=== PATIENT | male | born 1970 | race Caucasian/White ===

== ENCOUNTER 2022-07-18 11:19 | Inpatient (IN) | payer OTHER ==
--- OUTSIDE RECORDS SUMMARY | 2022-07-18 11:25 | XMS REPORT | Continuity of Care Document ---
:1970 Author Organization [facility] t Address [address] [facility] [address]. [address] [place] [address] Care Team Providers Name Role Phone PCP, PATIENT DOES NOT HAVE A Primary Care Physician UnavailLENO Nicole Attending Clinician Unavailable BENJAMIN CASTILLO Attending Clinician Unavailable Benjamin Castillo MD Attending Clinician NIEVES RILEY Attending Clinician Unavailable Nieves Rodriguez Attending Clinician Jeannine Peralta PA-C Attending Clinician Doctor Unassigned, [place] Attending Clinician Unavailable GRAY INMAN Attending Clinician Unavailable Gray Waite Attending Clinician BENJAMIN CASTILLO Admitting Clinician Unavailable GRAY INMAN Admitting Clinician Unavailable Payers Payer Name Policy Type Policy Number Effective Date Expiration Date [facility] [id number] 2021 CHOICE 00:00:00 ADMINISTRATIVE [id number] 2021 [employer] 00:00:00 Problems Condition Condition Condition Status Onset Resolution Last Treating Co mments Source Name Details Category Date Date Treatment Clinician Date No known No known Disease Unive rs active active ity of problems problems [facility] Allergies, Adverse Reactions, Alerts Allergy Allergy Status Severity Reaction(s) Onset Inactive Treating Comm ents Source Name Type Date Date Clinician No Known DA Active U [facility] No Known DA Active U [facility] 7[facility]27 [place] [facility] NO KNOWN Drug Active Univers ALLERGIE Class ity of S [facility] Social History Social Habit Start Date Stop Date Quantity Comments Source Exposure to 2021-06-24 2021-07-04 Not sure [facility] SARS-CoV-2 (event) 00:00:00 12:41:00 Medica l Branch Sex Assigned At [birth year] [facility] 00:00:00 00:00:00 Medical Branch Smoking Status Start Date Stop Date Source Unknown if ever smoked [facility] Medications Ordered Filled Start Stop Current Ordering Indication Dosage Frequency Signature Comments Components Source Medication Medication Date Date Medication? Clinician (SIG) Name Name ondansetron 2021- No 4mg 4 mg, Univ ers (ZOFRAN-ODT 4-24 -24 Oral, ity of ) 20:15: 19:13 ONCE, 1 [place] disintegrat 00 :00 dose, On Medi min ing tablet [place] 4 mg 07/04/21 at 1515, MARGARITA HYDROcodone 2021- No 1{tbl} 1 tablet, Univers -acetaminop 4-24 -24 Oral, ity of hen (NORCO) 20:15: 19[place]13 [place] :00 dose, On Medica l tablet 1 [place] Branch tablet 07/04/21 at 1515, MARGARITA No known No Univers medications 4-24 ity of 11:39: [address] ondansetron Yes [id number] 4mg Take 1 Univers 4 mg 4-24 tablet by ity of disintegrat 00:00: mouth [place] ing tablet 00 every 4 Medica l (four) Branch hours as needed for Nausea and Vomiting (N/V). HYDROcodone 2021- No [id number] 1{tbl} Take 1 U nivers -acetaminop 4-24 05-02 tablet by it y of hen (NORCO) 00:00: 04:59 [place] 10-325 mg 00 :00 every 8 Medical tablet (eight) Branch hours as needed for Pain (scale 4-6) for up to 7 days. Indication s: acute pain famotidine 2020-03 20mg 20 mg, Univ ers (PEPCID 04-11 Slow IV ity of (PF)) 06:30: 05:20 Push, [place] injection 00 :00 ONCE, 1 Medical 20 mg dose, On Branch Mon02/09/21 at 0030, MARGARITA No known 2020-03 No Univers medications 04-11 ity of 00:14: [place] 10 [facility] pantoprazol 2020-03 No [id number] 40mg Take 1 Univers e 40 mg EC 04-11 tablet by ity of tablet 00:00: 05:59 mouth 2 [place] 00 :00 (two) Medical times Branch daily for 30 days. Vital Signs Vital Name Observation Time Observation Value Comments Source Systolic blood 2021-07-04 20:00:00 156 mm[Hg] Univer sity of [facility] Diastolic blood 2021-07-04 20:00:00 80 mm[Hg] Unive rsity [facility] Heart rate 2021-07-04 20:00:00 73 /min [facility] Respiratory rate 2021-07-04 20:00:00 18 /min [facility] Oxygen saturation in 2021-07-04 20:00:00 98 /min [facility] Arterial blood by [facility] Pulse oximetry [place] Body temperature 2021-07-04 17:42:00 37.11 Lisa [facility] Body height 2021-07-04 17:42:00 182.9 cm [facility] Body weight 2021-07-04 17:42:00 117.935 kg [facility] BMI 2021-07-04 17:42:00 35.26 kg/m2 [facility] Systolic blood 2021-07-04 16:31:00 164 mm[Hg] Univer sity [facility] Diastolic blood 2021-07-04 16:31:00 94 mm[Hg] Unive rsity of [facility] Heart rate 2021-07-04 16:31:00 85 /min Universi ty of [place] Medical [place] Body temperature 2021-07-04 16:31:00 37.17 Lisa [facility] ersity of [facility] Respiratory rate 2021-07-04 16:31:00 18 /min Univ ersity of [place] [facility] Branch Body height 2021-07-04 16:31:00 182.9 cm Universi ty [facility] [place] [facility] [place] Body weight 2021-07-04 16:31:00 122.471 kg [facility]i ty [facility] [place] [facility] BMI 2021-07-04 16:31:00 36.62 kg/m2 Universi ty of [facility] Oxygen saturation in 2021-07-04 16:31:00 98 /min University of Arterial blood by [facility] Pulse oximetry Branch Systolic blood 2021-02-09 07:00:00 143 mm[Hg] Univer sity of pressure [facility] Diastolic blood 2021-02-09 07:00:00 93 mm[Hg] Unive rsity of pressure [facility] Heart rate 2021-02-09 07:00:00 74 /min Universi ty of [facility] Respiratory rate 2021-02-09 07:00:00 19 /min [facility] Oxygen saturation in 2021-02-09 07:00:00 100 /min University of Arterial blood by [facility] Pulse oximetry Branch Body temperature 2021-02-09 04:07:00 37 Lisa [facility] ersity of [facility] Body height 2021-02-09 04:07:00 182.9 cm [facility] ty [facility] [place] [facility] [place] Body weight 2021-02-09 04:07:00 120.203 kg [facility] ty [facility] [place] [facility] [place] BMI 2021-02-09 04:07:00 35.94 kg/m2 Universi ty [facility] Procedures Procedure Date / Time Performed Performing Clinician Sourc e XR FOOT <3 VW RIGHT 2021-07-04 19:28:08 Benjamin Castillo [facility] ty [facility] XR KNEE 3 VW RIGHT 2021-07-04 18:19:41 Benjamin Castillo [facility] y [facility] NOTICE OF PRIVACY 2021-07-04 17:11:30 Doctor Unassigned, No [facility] CONSENT/REFUSAL FOR 2021-07-04 17:11:15 Doctor Unassigned, No [facility] DIAGNOSIS AND [facility] TREATMENT ASSIGNMENT OF BENEFITS 2021-07-04 16:25:25 Doctor Unassigned, No [facility] XR CHEST 2 VW 2021-02-09 05:03:00 Gray Inman [facility] TROPONIN I 2021-02-09 04:40:00 Gray Inman [facility] COMP. METABOLIC PANEL 2021-02-09 04:40:00 Gray Inman Un [facility] ([id number]) [facility] CBC WITH DIFF 2021-02-09 04:40:00 Gray Inman [facility] N-TERMINAL PRO-BNP 2021-02-09 04:40:00 Gray Inamn Unive [facility] Encounters Start End Encounter Admission Attending Care Care Encounter Source Date/Time Date/Time Type Type Clinicians Facility Department ID 2021-07-06 2021-07-06 Outpatient Rochelle KHOURY [facility] [id number] Univers 13:00:00 13:00:00 LENO [facility] 2021-07-04 2021-07-04 [id number] Univers 12:43:00 15:20:00 BENJAMIN [facility] 2021-07-04 2021-07-04 [facility] [id number] Univers 12:43:00 15:20:00 Benjamin NO [id number] i [facility] [id number] [facility] [id number] [place] [id number] Branch 2021-07-04 2021-07-04 Outpatient Rochelle RILEY [facility] [id number] Univers 11:20:00 12:01:45 NIEVES palafox [facility] 2021-07-04 2021-07-04 Urgent Nieves Riley [facility] [id number] Univers 11:20:00 12:01:45 [facility] [id number] javy delgado [place] [id number] Erich as MELANI?BLEA [id number] De edilma RAKESH [address] [place] [address] MEDICAL OFFICE BUILDING 2021-07-04 2021-07-04 Orders Doctor SALIMA [id number] Univers 00:00:00 00:00:00 Only Unassigned, TAM [id number] ity of [place] [facility] 4.2.7.2.686 Erich as [id number] [facility] 009 Branch 2021-02-08 2021-02-09 Emergency X [facility] ERT [id number] Univers 21:59:00 01:10:00 FOLUSHO ity of [facility] 2021-02-08 2021-02-09 Emergency [facility] [id number] Univers 21:59:00 01:10:00 Folusho Kendrick NO [id number] ity of [place] 4.2.7.2.686 [place] [facility] [id number] [place] [id number] [place] Results Test Description Test Time Test Comments Results Result Comments Source CBC WITH DIFF 2021-02-09 05:55:30 Test Item Value Reference Range Interpretation Comme nts WBC (test code = 6690-2) See_Comment [A utomated message] The system which ge nerated this result transmit angela reference range: 4.20 - 1 0.70 10*3/?L. The reference r sai was not used to interpr et this result as normal/abnor mal. RBC (test code = 789-8) See_Comment L [Au tomated message] The system which Aquacue nerated this result transmit angela reference range: 4.26 - 5 .52 10*6/?L. The reference r sai was not used to interpr et this result as normal/abnor mal. HGB (test code = 718-7) 7.6 g/dL 12.2-16.4 L HCT (test code = 4544-3) 27.4 % 38.4-49.3 L MCV (test code = 787-2) 85.6 fL 81.7-95.6 MCH (test code = 785-6) 23.8 pg 26.1-32.7 L MCHC (test code = 786-4) 27.7 g/dL 31.2-35.0 L RDW-SD (test code = 01006-1) 66.3 fL 38.5-51.6 H RDW-CV (test code = 788-0) 21.4 % 12.1-15.4 H PLT (test code = 777-3) See_Comment [Au tomated message] The system which ge nerated this result transmit angela reference range: 150 - 32 8 10*3/?L. The reference range was not used to interpret th is result as normal/abnormal . MPV (test code = 36911-3) 10.1 fL 9.8-13.0 NRBC/100 WBC (test code = See_Comment [ Automated message] The 7110071888) system which ge nerated this result transmit angela reference range: 0.0 - 10 .0 /100 WBCs. The reference r sai was not used to interpr et this result as normal/abnor mal. NRBC x10^3 (test code = <0.01 See_Comment [Au tomated message] The 1858800320) system which ge nerated this result transmit angela reference range: 10*3/?L. The reference range was not u sed to interpret this result as normal/abnormal . GRAN MAT (NEUT) % (test code 73.3 % = 770-8) IMM GRAN % (test code = 0.40 % 6775760212) LYMPH % (test code = 736-9) 12.5 % MONO % (test code = 5905-5) 11.3 % EOS % (test code = 713-8) 1.5 % BASO % (test code = 706-2) 1.0 % GRAN MAT x10^3(ANC) (test 3.81 10*3/uL 1.99-6.95 code = 2204780697) IMM GRAN x10^3 (test code = <0.03 0.00-0.06 1083472611) LYMPH x10^3 (test code = 0.65 10*3/uL 1.09-3.23 L 731-0) MONO x10^3 (test code = 0.59 10*3/uL 0.36-1.02 742-7) EOS x10^3 (test code = 0.08 10*3/uL 0.06-0.53 711-2) BASO x10^3 (test code = 0.05 10*3/uL 0.01-0.09 704-7) Lab Interpretation (test Abnormal code = 67956-2) [place] [facility] [id number] 05:20:01 Test Item Value Reference Interpretation Comments Range TROPONIN I (test 0.002 ng/mL See_Comment [Automated code = 3471590273) message] The system which generated this result transmitted reference range : <=0.034. The reference range was not used to interpret this result as normal/abnormal . EUNICE (test code = Reference (Normal) EUNICE) Range (defined by the 99th percentile reference limit): <= 0.034 ng/mL Note: Cardiac troponin begins to rise 3-4 hours after the onset of ischemia. Repeat in 4-6 hours if the sample was drawn within 3-4 hours of the onset of the symptom and found normal. Diagnosis of myocardial injury is made with acute changes in cTn concentrations with at least one serial sample above the 99th percentile upper reference limit (URL), taken together with the patient's clinical presentation. Biotin has been reported to cause a negative bias, interpret results relative to patient's use of biotin. Lab Interpretation Normal (test code = 31500-5) [place] [facility] [id number] 05:16:39 Test Item Value Reference Range Interpretation Comments NT-proBNP (test code 320 pg/mL See_Comment H [Autom ated = 8661839004) message] The system which generated this result transmitted reference range : <=125. The reference range was not used to interpret this result as normal/abnormal . EUNICE (test code = EUNICE) Biotin has been reported to cause a negative bias, interpret results relative to patient's use of biotin. Lab Interpretation Abnormal (test code = 72213-5) [place] [facility] METABOLIC PANEL ([id number])2021-02-09 05:05:16 Test Item Value Reference Range Interpretation Comments NA (test code = 135 mmol/L 135-145 2284410796) K (test code = 4.3 mmol/L 3.5-5.0 7867349234) CL (test code = 109 mmol/L 98-108 H 6343594066) CO2 TOTAL (test code = 24 mmol/L 23-31 8899252022) AGAP (test code = 2-16 5918939655) BUN (test code = 16 mg/dL 7-23 3151419559) GLUCOSE (test code = 224 mg/dL 70-110 H 2648071482) CREATININE (test code = 0.91 mg/dL 0.60-1.25 2747981203) TOTAL BILI (test code = 0.6 mg/dL 0.1-1.7 3052105842) CALCIUM (test code = 8.2 mg/dL 8.6-10.6 L 8014436275) T PROTEIN (test code = 6.0 g/dL 6.3-8.2 L 7459134326) ALBUMIN (test code = 3.3 g/dL 3.5-5.0 L 3282839955) ALK PHOS (test code = 127 U/L 34-122 H 5702392271) ALTv (test code = 15 U/L 5-50 2-6) AST(SGOT) (test code = 26 U/L 13-40 7230325607) eGFR (test code = mL/min/1.73m2 2777493814) EUNICE (test code = EUNICE) Association of Glomerular Filtration Rate (GFR) and Staging of Kidney Disease* + --+ --+ ------+| GFR (mL/min/1.73 m2) ?| With Kidney Damage ?| ?Without Kidney Damage+ --------+ --------+ +| ?>90 ?| ?Stage one ?| ? Normal ?+ ---+ ---+ -------+| ?60-89 ?| ?Stage two ?| ? Decreased GFR ? + --+ --+ ------+| ?30-59 ?| ?Stage three ?| ? Stage three ? + --+ --+ ------+| ?15-29 ?| ?Stage four ? | ? Stage four ?+ ---+ ---+ -------+| ?<15 (or dialysis) ? ?| ?Stage five ? | ? Stage five ?+ ---+ ---+ -------+ *Each stage assumes the associated GFR level has been in effect for at least three months. ?Stages 1 to 5, with or without kidney disease, indicate chronic kidney disease. Notes: Determination of stages one and two (with eGFR >59mL/min/1.73 m2) requires estimation of kidney damage for at least three months as defined by structural or functional abnormalities of the kidney, manifested by either:Pathological abnormalities or Markers of kidney damage (including abnormalities in the composition of the blood or urine or abnormalities in imaging tests). Lab Interpretation Abnormal (test code = 05775-8) [place] [facility]2019-07-15 08:41:00 Test Item Value Reference Range Interpretation Comments GLUBED (test code = 100 mg/dL 74-106 N Performe d by certified GLUBED) linking machine operator at [facility] [id number] 20:58:00 Test Item Value Reference Range Interpretation Comments GLUBED (test code = 114 mg/dL 74-106 H Performe d by certified GLUBED) linking machine operator at [facility] [id number] 17:50:00 Test Item Value Reference Range Interpretation Comments GLUBED (test code = 194 mg/dL 74-106 H Performe d by certified GLUBED) linking machine operator at [facility] [id number] 16:19:00 Test Item Value Reference Range Interpretation Comments GLUBED (test code = 103 mg/dL 74-106 N Performe d by certified GLUBED) linking machine operator at [facility] [id number] 16:19:00 Test Item Value Reference Range Interpretation Comments GLUBED (test code = 203 mg/dL 74-106 H Performe d by certified GLUBED) linking machine operator at [facility] [id number] 01:08:00 Test Item Value Reference Range Interpretation Comments GLUBED (test code = 115 mg/dL 74-106 H Performe d by certified GLUBED) linking machine operator at [facility] CBC W/AUTO [id number] 12:15:00 Test Item Value Reference Range Interpretation Comments WHITE BLOOD CELL (test 6.0 K/mm3 4.5-12.5 N code = WBC) RED BLOOD CELL (test code 3.34 mill/mm3 4.0-5.8 L = RBC) HEMOGLOBIN (test code = 8.7 gram/dL 13.0-17.5 L HGB) HEMATOCRIT (test code = 30.1 % 42.0-52.0 L HCT) MEAN CELL VOLUME (test 90.1 fL 80-98 N code = MCV) MEAN CELL HGB (test code 26.0 picogram 27.0-33.0 L = MCH) MEAN CELL HGB 28.9 gram/dL 33.0-36.0 L CONCETRATION (test code = MCHC) RED CELL DISTRIBUTION 21.5 % 11.6-16.2 H WIDTH (test code = RDW) RED CELL DISTRIBUTION 65.4 fL 37.0-51.0 H WIDTH SD (test code = RDW-SD) PLATELET COUNT (test code 117 K/mm3 150-450 L = PLT) MEAN PLATELET VOLUME 10.6 fL 6.7-11.0 N (test code = MPV) NEUTROPHIL % (test code = 75.5 % 39.0-69.0 H NT%) IMMATURE GRANULOCYTE % 0.8 % 0.0-5.0 N (test code = IG%) LYMPHOCYTE % (test code = 12.3 % 25.0-55.0 L LY%) MONOCYTE % (test code = 9.1 % 0.0-10.0 N MO%) EOSINOPHIL % (test code = 1.8 % 0.0-5.0 N EO%) BASOPHIL % (test code = 0.5 % 0.0-1.0 N BA%) NUCLEATED RBC % (test 0.0 % 0-0 N code = NRBC%) NEUTROPHIL # (test code = 4.49 K/mm3 1.8-7.7 N NT#) IMMATURE GRANULOCYTE # 0.05 x10 3/uL 0-0.03 H (test code = IG#) LYMPHOCYTE # (test code = 0.73 K/mm3 1.0-5.0 L LY#) MONOCYTE # (test code = 0.54 K/mm3 0-0.8 N MO#) EOSINOPHIL # (test code = 0.11 K/mm3 0.0-0.5 N EO#) BASOPHIL # (test code = 0.03 K/mm3 0.0-0.2 N BA#) NUCLEATED RBC # (test 0.00 K/mm3 0.0-0.1 N code = NRBC#) MANUAL DIFF REQUIRED NO, ONLY SCAN NEEDED (test code = MDIFF) DIFFERENTIAL [id number] 12:15:00 Test Item Value Reference Range Interpretation Comments STAIN ACCEPTABILITY (test STAIN ACCEPTABLE code = STN ACCEPTABLE) POLYCHROMASIA (test code 1+ = POLC) HYPOCHROMIA (test code = 1+ HYPO) POIKILOCYTOSIS (test code 1+ = POIK) ANISOCYTOSIS (test code = 1+ ANISO) MICROCYTOSIS (test code = 1+ MICR) STOMATOCYTES (test code = 1+ STO) PLATELET ESTIMATE (test ADEQUATE code = PLTEST) PLATELET MORPHOLOGY (test GIANT PLATELETS SEEN code = PLTMORPH) BASIC METABOLIC [id number] 12:07:00 Test Item Value Reference Range Interpretation Comments SODIUM (test code = 140 mmol/L 136-145 N NA) POTASSIUM (test code 4.4 mmol/L 3.5-5.1 N = K) CHLORIDE (test code = 109.0 mmol/L 98-107 H CL) CARBON DIOXIDE (test 27.0 mmol/L 21-32 N code = CO2) ANION GAP (test code 8.4 10-20 L = GAP) GLUCOSE (test code = 101 mg/dL 74-106 N GLU) BLOOD UREA NITROGEN 9 mg/dL 7-18 N (test code = BUN) GLOMERULAR FILTRATION > 60 mL/min >=60 Estima angela GFR by RATE (test code = using Meena fied MDRD GFR) formula.Chronic kidney disease is defined as ei er kidney damageor GFR <60 mL/min/1.73 m2 for >3 months. CREATININE (test code 0.80 mg/dL 0.7-1.3 N = CREAT) BUN/CREATININE RATIO 11.3 10-20 N (test code = BUN/CREA) CALCIUM (test code = 8.5 mg/dL 8.5-10.1 N CA) PT BERNY SALCIDO NOTIFIED [facility] 09/22/18 [id number] 12:07:00 Test Item Value Reference Range Interpretation Comments MAGNESIUM (test code = MAG) 2.0 mg/dL 1.8-2.4 N PT BERNY SALCIDO NOTIFIED [facility] 09/22/18 1052BASIC METABOLIC PANEL 2018-09-22 12:06:00 Test Item Value Reference Range Interpretation Comments SODIUM (test code = NA) 140 mmol/L 136-145 N POTASSIUM (test code = K) 4.4 mmol/L 3.5-5.1 N CHLORIDE (test code = CL) 109.0 mmol/L 98-107 H CARBON DIOXIDE (test code = CO2) mmol/L 21-32 ANION GAP (test code = GAP) 10-20 GLUCOSE (test code = GLU) mg/dL 74-106 BLOOD UREA NITROGEN (test code = mg/dL 7-18 BUN) GLOMERULAR FILTRATION RATE (test mL/min >=60 code = GFR) CREATININE (test code = CREAT) mg/dL 0.7-1.3 BUN/CREATININE RATIO (test code 10-20 = BUN/CREA) CALCIUM (test code = CA) mg/dL 8.5-10.1 PT BERNY SALCIDO NOTIFIED [facility] 09/22/18 [id number] 12:06:00 Test Item Value Reference Range Interpretation Comments MAGNESIUM (test code = MAG) mg/dL 1.8-2.4 PT BERNY SALCIDO NOTIFIED [facility] 09/22/18 1052CBC W/AUTO DIFF 2018-09-22 11:45:00 Test Item Value Reference Range Interpretation Comments WHITE BLOOD CELL (test 6.0 K/mm3 4.5-12.5 N code = WBC) RED BLOOD CELL (test code 3.34 mill/mm3 4.0-5.8 L = RBC) HEMOGLOBIN (test code = 8.7 gram/dL 13.0-17.5 L HGB) HEMATOCRIT (test code = 30.1 % 42.0-52.0 L HCT) MEAN CELL VOLUME (test 90.1 fL 80-98 N code = MCV) MEAN CELL HGB (test code 26.0 picogram 27.0-33.0 L = MCH) MEAN CELL HGB 28.9 gram/dL 33.0-36.0 L CONCETRATION (test code = MCHC) RED CELL DISTRIBUTION 21.5 % 11.6-16.2 H WIDTH (test code = RDW) RED CELL DISTRIBUTION 65.4 fL 37.0-51.0 H WIDTH SD (test code = RDW-SD) PLATELET COUNT (test code 117 K/mm3 150-450 L = PLT) MEAN PLATELET VOLUME 10.6 fL 6.7-11.0 N (test code = MPV) NEUTROPHIL % (test code = 75.5 % 39.0-69.0 H NT%) IMMATURE GRANULOCYTE % 0.8 % 0.0-5.0 N (test code = IG%) LYMPHOCYTE % (test code = 12.3 % 25.0-55.0 L LY%) MONOCYTE % (test code = 9.1 % 0.0-10.0 N MO%) EOSINOPHIL % (test code = 1.8 % 0.0-5.0 N EO%) BASOPHIL % (test code = 0.5 % 0.0-1.0 N BA%) NUCLEATED RBC % (test 0.0 % 0-0 N code = NRBC%) NEUTROPHIL # (test code = 4.49 K/mm3 1.8-7.7 N NT#) IMMATURE GRANULOCYTE # 0.05 x10 3/uL 0-0.03 H (test code = IG#) LYMPHOCYTE # (test code = 0.73 K/mm3 1.0-5.0 L LY#) MONOCYTE # (test code = 0.54 K/mm3 0-0.8 N MO#) EOSINOPHIL # (test code = 0.11 K/mm3 0.0-0.5 N EO#) BASOPHIL # (test code = 0.03 K/mm3 0.0-0.2 N BA#) NUCLEATED RBC # (test 0.00 K/mm3 0.0-0.1 N code = NRBC#) MANUAL DIFF REQUIRED NO, ONLY SCAN NEEDED (test code = MDIFF) DIFFERENTIAL [id number] 11:45:00 Test Item Value Reference Range Interpretation Comments STAIN ACCEPTABILITY (test code = STN ACCEPTABLE) CABOT RINGS (test code = CAB) MORPHOLOGY COMMENT (test code = MOC) PLATELET ESTIMATE (test code = PLTEST) PLATELET MORPHOLOGY (test code = PLTMORPH) CBC W/AUTO [id number] 11:45:00 Test Item Value Reference Range Interpretation Comments WHITE BLOOD CELL (test 6.0 K/mm3 4.5-12.5 N code = WBC) RED BLOOD CELL (test code 3.34 mill/mm3 4.0-5.8 L = RBC) HEMOGLOBIN (test code = 8.7 gram/dL 13.0-17.5 L HGB) HEMATOCRIT (test code = 30.1 % 42.0-52.0 L HCT) MEAN CELL VOLUME (test 90.1 fL 80-98 N code = MCV) MEAN CELL HGB (test code 26.0 picogram 27.0-33.0 L = MCH) MEAN CELL HGB 28.9 gram/dL 33.0-36.0 L CONCETRATION (test code = MCHC) RED CELL DISTRIBUTION 21.5 % 11.6-16.2 H WIDTH (test code = RDW) RED CELL DISTRIBUTION 65.4 fL 37.0-51.0 H WIDTH SD (test code = RDW-SD) PLATELET COUNT (test code 117 K/mm3 150-450 L = PLT) MEAN PLATELET VOLUME 10.6 fL 6.7-11.0 N (test code = MPV) NEUTROPHIL % (test code = 75.5 % 39.0-69.0 H NT%) IMMATURE GRANULOCYTE % 0.8 % 0.0-5.0 N (test code = IG%) LYMPHOCYTE % (test code = 12.3 % 25.0-55.0 L LY%) MONOCYTE % (test code = 9.1 % 0.0-10.0 N MO%) EOSINOPHIL % (test code = 1.8 % 0.0-5.0 N EO%) BASOPHIL % (test code = 0.5 % 0.0-1.0 N BA%) NUCLEATED RBC % (test 0.0 % 0-0 N code = NRBC%) NEUTROPHIL # (test code = 4.49 K/mm3 1.8-7.7 N NT#) IMMATURE GRANULOCYTE # 0.05 x10 3/uL 0-0.03 H (test code = IG#) LYMPHOCYTE # (test code = 0.73 K/mm3 1.0-5.0 L LY#) MONOCYTE # (test code = 0.54 K/mm3 0-0.8 N MO#) EOSINOPHIL # (test code = 0.11 K/mm3 0.0-0.5 N EO#) BASOPHIL # (test code = 0.03 K/mm3 0.0-0.2 N BA#) NUCLEATED RBC # (test 0.00 K/mm3 0.0-0.1 N code = NRBC#) MANUAL DIFF REQUIRED NO, ONLY SCAN NEEDED (test code = MDIFF) DIFFERENTIAL [id number] 11:45:00 Test Item Value Reference Range Interpretation Comments STAIN ACCEPTABILITY (test code = STN ACCEPTABLE) CABOT RINGS (test code = CAB) MORPHOLOGY COMMENT (test code = MOC) PLATELET ESTIMATE (test code = PLTEST) PLATELET MORPHOLOGY (test code = PLTMORPH) CBC W/AUTO [id number] 11:45:00 Test Item Value Reference Range Interpretation Comments WHITE BLOOD CELL (test 6.0 K/mm3 4.5-12.5 N code = WBC) RED BLOOD CELL (test code 3.34 mill/mm3 4.0-5.8 L = RBC) HEMOGLOBIN (test code = 8.7 gram/dL 13.0-17.5 L HGB) HEMATOCRIT (test code = 30.1 % 42.0-52.0 L HCT) MEAN CELL VOLUME (test 90.1 fL 80-98 N code = MCV) MEAN CELL HGB (test code 26.0 picogram 27.0-33.0 L = MCH) MEAN CELL HGB 28.9 gram/dL 33.0-36.0 L CONCETRATION (test code = MCHC) RED CELL DISTRIBUTION 21.5 % 11.6-16.2 H WIDTH (test code = RDW) RED CELL DISTRIBUTION 65.4 fL 37.0-51.0 H WIDTH SD (test code = RDW-SD) PLATELET COUNT (test code 117 K/mm3 150-450 L = PLT) MEAN PLATELET VOLUME 10.6 fL 6.7-11.0 N (test code = MPV) NEUTROPHIL % (test code = 75.5 % 39.0-69.0 H NT%) IMMATURE GRANULOCYTE % 0.8 % 0.0-5.0 N (test code = IG%) LYMPHOCYTE % (test code = 12.3 % 25.0-55.0 L LY%) MONOCYTE % (test code = 9.1 % 0.0-10.0 N MO%) EOSINOPHIL % (test code = 1.8 % 0.0-5.0 N EO%) BASOPHIL % (test code = 0.5 % 0.0-1.0 N BA%) NUCLEATED RBC % (test 0.0 % 0-0 N code = NRBC%) NEUTROPHIL # (test code = 4.49 K/mm3 1.8-7.7 N NT#) IMMATURE GRANULOCYTE # 0.05 x10 3/uL 0-0.03 H (test code = IG#) LYMPHOCYTE # (test code = 0.73 K/mm3 1.0-5.0 L LY#) MONOCYTE # (test code = 0.54 K/mm3 0-0.8 N MO#) EOSINOPHIL # (test code = 0.11 K/mm3 0.0-0.5 N EO#) BASOPHIL # (test code = 0.03 K/mm3 0.0-0.2 N BA#) NUCLEATED RBC # (test 0.00 K/mm3 0.0-0.1 N code = NRBC#) MANUAL DIFF REQUIRED NO, ONLY SCAN NEEDED (test code = MDIFF) DIFFERENTIAL [id number] 11:45:00 Test Item Value Reference Range Interpretation Comments STAIN ACCEPTABILITY (test code = STN ACCEPTABLE) MORPHOLOGY COMMENT (test code = MOC) PLATELET ESTIMATE (test code = PLTEST) PLATELET MORPHOLOGY (test code = PLTMORPH) CBC W/AUTO [id number] 11:44:00 Test Item Value Reference Range Interpretation Comments WHITE BLOOD CELL (test 6.0 K/mm3 4.5-12.5 N code = WBC) RED BLOOD CELL (test code 3.34 mill/mm3 4.0-5.8 L = RBC) HEMOGLOBIN (test code = 8.7 gram/dL 13.0-17.5 L HGB) HEMATOCRIT (test code = 30.1 % 42.0-52.0 L HCT) MEAN CELL VOLUME (test 90.1 fL 80-98 N code = MCV) MEAN CELL HGB (test code 26.0 picogram 27.0-33.0 L = MCH) MEAN CELL HGB 28.9 gram/dL 33.0-36.0 L CONCETRATION (test code = MCHC) RED CELL DISTRIBUTION 21.5 % 11.6-16.2 H WIDTH (test code = RDW) RED CELL DISTRIBUTION 65.4 fL 37.0-51.0 H WIDTH SD (test code = RDW-SD) PLATELET COUNT (test code 117 K/mm3 150-450 L = PLT) MEAN PLATELET VOLUME 10.6 fL 6.7-11.0 N (test code = MPV) NEUTROPHIL % (test code = 75.5 % 39.0-69.0 H NT%) IMMATURE GRANULOCYTE % 0.8 % 0.0-5.0 N (test code = IG%) LYMPHOCYTE % (test code = 12.3 % 25.0-55.0 L LY%) MONOCYTE % (test code = 9.1 % 0.0-10.0 N MO%) EOSINOPHIL % (test code = 1.8 % 0.0-5.0 N EO%) BASOPHIL % (test code = 0.5 % 0.0-1.0 N BA%) NUCLEATED RBC % (test 0.0 % 0-0 N code = NRBC%) NEUTROPHIL # (test code = 4.49 K/mm3 1.8-7.7 N NT#) IMMATURE GRANULOCYTE # 0.05 x10 3/uL 0-0.03 H (test code = IG#) LYMPHOCYTE # (test code = 0.73 K/mm3 1.0-5.0 L LY#) MONOCYTE # (test code = 0.54 K/mm3 0-0.8 N MO#) EOSINOPHIL # (test code = 0.11 K/mm3 0.0-0.5 N EO#) BASOPHIL # (test code = 0.03 K/mm3 0.0-0.2 N BA#) NUCLEATED RBC # (test 0.00 K/mm3 0.0-0.1 N code = NRBC#) MANUAL DIFF REQUIRED NO, ONLY SCAN NEEDED (test code = MDIFF) DIFFERENTIAL [id number] 11:44:00 Test Item Value Reference Range Interpretation Comments STAIN ACCEPTABILITY (test code = STN ACCEPTABLE) CABOT RINGS (test code = CAB) MORPHOLOGY COMMENT (test code = MOC) PLATELET ESTIMATE (test code = PLTEST) PLATELET MORPHOLOGY (test code = PLTMORPH) [id number] 16:45:00 Test Item Value Reference Range Interpretation Comments GLUBED (test code = 117 mg/dL 74-106 H Performe d by certified GLUBED) linking machine operator at [facility] CBC W/AUTO [id number] 12:55:00 Test Item Value Reference Range Interpretation Comments WHITE BLOOD CELL (test 6.0 K/mm3 4.5-12.5 N code = WBC) RED BLOOD CELL (test code 3.36 mill/mm3 4.0-5.8 L = RBC) HEMOGLOBIN (test code = 8.6 gram/dL 13.0-17.5 L HGB) HEMATOCRIT (test code = 29.6 % 42.0-52.0 L HCT) MEAN CELL VOLUME (test 88.1 fL 80-98 N code = MCV) MEAN CELL HGB (test code 25.6 picogram 27.0-33.0 L = MCH) MEAN CELL HGB 29.1 gram/dL 33.0-36.0 L CONCETRATION (test code = MCHC) RED CELL DISTRIBUTION 20.3 % 11.6-16.2 H WIDTH (test code = RDW) RED CELL DISTRIBUTION 62.6 fL 37.0-51.0 H WIDTH SD (test code = RDW-SD) PLATELET COUNT (test code 101 K/mm3 150-450 L = PLT) MEAN PLATELET VOLUME 10.6 fL 6.7-11.0 N (test code = MPV) NEUTROPHIL % (test code = 77.5 % 39.0-69.0 H NT%) IMMATURE GRANULOCYTE % 0.8 % 0.0-5.0 N (test code = IG%) LYMPHOCYTE % (test code = 12.7 % 25.0-55.0 L LY%) MONOCYTE % (test code = 6.5 % 0.0-10.0 N MO%) EOSINOPHIL % (test code = 2.0 % 0.0-5.0 N EO%) BASOPHIL % (test code = 0.5 % 0.0-1.0 N BA%) NUCLEATED RBC % (test 0.0 % 0-0 N code = NRBC%) NEUTROPHIL # (test code = 4.65 K/mm3 1.8-7.7 N NT#) IMMATURE GRANULOCYTE # 0.05 x10 3/uL 0-0.03 H (test code = IG#) LYMPHOCYTE # (test code = 0.76 K/mm3 1.0-5.0 L LY#) MONOCYTE # (test code = 0.39 K/mm3 0-0.8 N MO#) EOSINOPHIL # (test code = 0.12 K/mm3 0.0-0.5 N EO#) BASOPHIL # (test code = 0.03 K/mm3 0.0-0.2 N BA#) NUCLEATED RBC # (test 0.00 K/mm3 0.0-0.1 N code = NRBC#) MANUAL DIFF REQUIRED NO, ONLY SCAN NEEDED (test code = MDIFF) DIFFERENTIAL [id number] 12:55:00 Test Item Value Reference Range Interpretation Comments STAIN ACCEPTABILITY (test STAIN ACCEPTABLE code = STN ACCEPTABLE) POLYCHROMASIA (test code = 1+ POLC) HYPOCHROMIA (test code = 1+ HYPO) POIKILOCYTOSIS (test code = 1+ POIK) ANISOCYTOSIS (test code = 2+ ANISO) TEAR DROP CELLS (test code = 1+ TEAR) PLATELET ESTIMATE (test code DECREASED = PLTEST) PLATELET MORPHOLOGY (test NORMAL code = PLTMORPH) [id number] 12:03:00 Test Item Value Reference Range Interpretation Comments GLUBED (test code = 74 mg/dL 74-106 N Performe d by certified GLUBED) linking machine operator at [facility] COMPREHENSIVE METABOLIC [id number] 11:42:00 Test Item Value Reference Range Interpretation Comments SODIUM (test code = 141 mmol/L 136-145 N NA) POTASSIUM (test code = 4.2 mmol/L 3.5-5.1 N K) CHLORIDE (test code = 109.0 mmol/L 98-107 H CL) CARBON DIOXIDE (test 27.0 mmol/L 21-32 N code = CO2) ANION GAP (test code = 9.2 10-20 L GAP) GLUCOSE (test code = 79 mg/dL 74-106 N GLU) BLOOD UREA NITROGEN 10 mg/dL 7-18 N (test code = BUN) GLOMERULAR FILTRATION > 60 mL/min >=60 Estima angela GFR by RATE (test code = GFR) using Modified MDRD formula.Chronic kidney disease is defined as [facility] kidney damageor GFR <60 mL/min/1.73 m2 for >3 months. CREATININE (test code 0.90 mg/dL 0.7-1.3 N = CREAT) BUN/CREATININE RATIO 11.0 10-20 N (test code = BUN/CREA) TOTAL PROTEIN (test 5.7 gram/dL 6.4-8.2 L code = PROT) ALBUMIN (test code = 2.8 g/dL 3.4-5.0 L ALB) GLOBULIN (test code = 2.9 gram/dL 2.7-4.2 N GLOB) ALBUMIN/GLOBULIN RATIO 1.0 0.75-1.50 N (test code = A/G) CALCIUM (test code = 8.1 mg/dL 8.5-10.1 L CA) BILIRUBIN TOTAL (test 0.60 mg/dL 0.0-1.0 N code = BILT) SGOT/AST (test code = 19 IUnit/L 15-37 N AST) SGPT/ALT (test code = 29 IUnit/L 12-78 N ALT) ALKALINE PHOSPHATASE 207 IUnit/L 45-117 H Note change in TOTAL (test code = reference range due ALKP) to change in reagent. [id number] 11:42:00 Test Item Value Reference Range Interpretation Comments MAGNESIUM (test code = MAG) 1.9 mg/dL 1.8-2.4 N COMPREHENSIVE METABOLIC [id number] 11:33:00 Test Item Value Reference Range Interpretation Comments SODIUM (test code = NA) 141 mmol/L 136-145 N POTASSIUM (test code = K) 4.2 mmol/L 3.5-5.1 N CHLORIDE (test code = CL) 109.0 mmol/L 98-107 H CARBON DIOXIDE (test code = CO2) mmol/L 21-32 ANION GAP (test code = GAP) 10-20 GLUCOSE (test code = GLU) mg/dL 74-106 BLOOD UREA NITROGEN (test code = mg/dL 7-18 BUN) GLOMERULAR FILTRATION RATE (test mL/min >=60 code = GFR) CREATININE (test code = CREAT) mg/dL 0.7-1.3 BUN/CREATININE RATIO (test code 10-20 = BUN/CREA) TOTAL PROTEIN (test code = PROT) gram/dL 6.4-8.2 ALBUMIN (test code = ALB) g/dL 3.4-5.0 GLOBULIN (test code = GLOB) gram/dL 2.7-4.2 ALBUMIN/GLOBULIN RATIO (test 0.75-1.50 code = A/G) CALCIUM (test code = CA) mg/dL 8.5-10.1 BILIRUBIN TOTAL (test code = mg/dL 0.0-1.0 BILT) SGOT/AST (test code = AST) IUnit/L 15-37 SGPT/ALT (test code = ALT) IUnit/L 12-78 ALKALINE PHOSPHATASE TOTAL (test IUnit/L 45-117 code = ALKP) [id number] 11:33:00 Test Item Value Reference Range Interpretation Comments MAGNESIUM (test code = MAG) mg/dL 1.8-2.4 CBC W/AUTO [id number] 11:07:00 Test Item Value Reference Range Interpretation Comments WHITE BLOOD CELL (test 6.0 K/mm3 4.5-12.5 N code = WBC) RED BLOOD CELL (test code 3.36 mill/mm3 4.0-5.8 L = RBC) HEMOGLOBIN (test code = 8.6 gram/dL 13.0-17.5 L HGB) HEMATOCRIT (test code = 29.6 % 42.0-52.0 L HCT) MEAN CELL VOLUME (test 88.1 fL 80-98 N code = MCV) MEAN CELL HGB (test code 25.6 picogram 27.0-33.0 L = MCH) MEAN CELL HGB 29.1 gram/dL 33.0-36.0 L CONCETRATION (test code = MCHC) RED CELL DISTRIBUTION 20.3 % 11.6-16.2 H WIDTH (test code = RDW) RED CELL DISTRIBUTION 62.6 fL 37.0-51.0 H WIDTH SD (test code = RDW-SD) PLATELET COUNT (test code 101 K/mm3 150-450 L = PLT) MEAN PLATELET VOLUME 10.6 fL 6.7-11.0 N (test code = MPV) NEUTROPHIL % (test code = 77.5 % 39.0-69.0 H NT%) IMMATURE GRANULOCYTE % 0.8 % 0.0-5.0 N (test code = IG%) LYMPHOCYTE % (test code = 12.7 % 25.0-55.0 L LY%) MONOCYTE % (test code = 6.5 % 0.0-10.0 N MO%) EOSINOPHIL % (test code = 2.0 % 0.0-5.0 N EO%) BASOPHIL % (test code = 0.5 % 0.0-1.0 N BA%) NUCLEATED RBC % (test 0.0 % 0-0 N code = NRBC%) NEUTROPHIL # (test code = 4.65 K/mm3 1.8-7.7 N NT#) IMMATURE GRANULOCYTE # 0.05 x10 3/uL 0-0.03 H (test code = IG#) LYMPHOCYTE # (test code = 0.76 K/mm3 1.0-5.0 L LY#) MONOCYTE # (test code = 0.39 K/mm3 0-0.8 N MO#) EOSINOPHIL # (test code = 0.12 K/mm3 0.0-0.5 N EO#) BASOPHIL # (test code = 0.03 K/mm3 0.0-0.2 N BA#) NUCLEATED RBC # (test 0.00 K/mm3 0.0-0.1 N code = NRBC#) MANUAL DIFF REQUIRED NO, ONLY SCAN NEEDED (test code = MDIFF) DIFFERENTIAL [id number] 11:07:00 Test Item Value Reference Range Interpretation Comments STAIN ACCEPTABILITY (test code = STN ACCEPTABLE) MORPHOLOGY COMMENT (test code = MOC) PLATELET ESTIMATE (test code = PLTEST) PLATELET MORPHOLOGY (test code = PLTMORPH) CBC W/AUTO [id number] 11:06:00 Test Item Value Reference Range Interpretation Comments WHITE BLOOD CELL (test 6.0 K/mm3 4.5-12.5 N code = WBC) RED BLOOD CELL (test code 3.36 mill/mm3 4.0-5.8 L = RBC) HEMOGLOBIN (test code = 8.6 gram/dL 13.0-17.5 L HGB) HEMATOCRIT (test code = 29.6 % 42.0-52.0 L HCT) MEAN CELL VOLUME (test 88.1 fL 80-98 N code = MCV) MEAN CELL HGB (test code 25.6 picogram 27.0-33.0 L = MCH) MEAN CELL HGB 29.1 gram/dL 33.0-36.0 L CONCETRATION (test code = MCHC) RED CELL DISTRIBUTION 20.3 % 11.6-16.2 H WIDTH (test code = RDW) RED CELL DISTRIBUTION 62.6 fL 37.0-51.0 H WIDTH SD (test code = RDW-SD) PLATELET COUNT (test code 101 K/mm3 150-450 L = PLT) MEAN PLATELET VOLUME 10.6 fL 6.7-11.0 N (test code = MPV) NEUTROPHIL % (test code = 77.5 % 39.0-69.0 H NT%) IMMATURE GRANULOCYTE % 0.8 % 0.0-5.0 N (test code = IG%) LYMPHOCYTE % (test code = 12.7 % 25.0-55.0 L LY%) MONOCYTE % (test code = 6.5 % 0.0-10.0 N MO%) EOSINOPHIL % (test code = 2.0 % 0.0-5.0 N EO%) BASOPHIL % (test code = 0.5 % 0.0-1.0 N BA%) NUCLEATED RBC % (test 0.0 % 0-0 N code = NRBC%) NEUTROPHIL # (test code = 4.65 K/mm3 1.8-7.7 N NT#) IMMATURE GRANULOCYTE # 0.05 x10 3/uL 0-0.03 H (test code = IG#) LYMPHOCYTE # (test code = 0.76 K/mm3 1.0-5.0 L LY#) MONOCYTE # (test code = 0.39 K/mm3 0-0.8 N MO#) EOSINOPHIL # (test code = 0.12 K/mm3 0.0-0.5 N EO#) BASOPHIL # (test code = 0.03 K/mm3 0.0-0.2 N BA#) NUCLEATED RBC # (test 0.00 K/mm3 0.0-0.1 N code = NRBC#) MANUAL DIFF REQUIRED NO, ONLY SCAN NEEDED (test code = MDIFF) DIFFERENTIAL [id number] 11:06:00 Test Item Value Reference Range Interpretation Comments STAIN ACCEPTABILITY (test code = STN ACCEPTABLE) CABOT RINGS (test code = CAB) MORPHOLOGY COMMENT (test code = MOC) PLATELET ESTIMATE (test code = PLTEST) PLATELET MORPHOLOGY (test code = PLTMORPH) CBC W/AUTO [id number] 11:06:00 Test Item Value Reference Range Interpretation Comments WHITE BLOOD CELL (test 6.0 K/mm3 4.5-12.5 N code = WBC) RED BLOOD CELL (test code 3.36 mill/mm3 4.0-5.8 L = RBC) HEMOGLOBIN (test code = 8.6 gram/dL 13.0-17.5 L HGB) HEMATOCRIT (test code = 29.6 % 42.0-52.0 L HCT) MEAN CELL VOLUME (test 88.1 fL 80-98 N code = MCV) MEAN CELL HGB (test code 25.6 picogram 27.0-33.0 L = MCH) MEAN CELL HGB 29.1 gram/dL 33.0-36.0 L CONCETRATION (test code = MCHC) RED CELL DISTRIBUTION 20.3 % 11.6-16.2 H WIDTH (test code = RDW) RED CELL DISTRIBUTION 62.6 fL 37.0-51.0 H WIDTH SD (test code = RDW-SD) PLATELET COUNT (test code 101 K/mm3 150-450 L = PLT) MEAN PLATELET VOLUME 10.6 fL 6.7-11.0 N (test code = MPV) NEUTROPHIL % (test code = 77.5 % 39.0-69.0 H NT%) IMMATURE GRANULOCYTE % 0.8 % 0.0-5.0 N (test code = IG%) LYMPHOCYTE % (test code = 12.7 % 25.0-55.0 L LY%) MONOCYTE % (test code = 6.5 % 0.0-10.0 N MO%) EOSINOPHIL % (test code = 2.0 % 0.0-5.0 N EO%) BASOPHIL % (test code = 0.5 % 0.0-1.0 N BA%) NUCLEATED RBC % (test 0.0 % 0-0 N code = NRBC%) NEUTROPHIL # (test code = 4.65 K/mm3 1.8-7.7 N NT#) IMMATURE GRANULOCYTE # 0.05 x10 3/uL 0-0.03 H (test code = IG#) LYMPHOCYTE # (test code = 0.76 K/mm3 1.0-5.0 L LY#) MONOCYTE # (test code = 0.39 K/mm3 0-0.8 N MO#) EOSINOPHIL # (test code = 0.12 K/mm3 0.0-0.5 N EO#) BASOPHIL # (test code = 0.03 K/mm3 0.0-0.2 N BA#) NUCLEATED RBC # (test 0.00 K/mm3 0.0-0.1 N code = NRBC#) MANUAL DIFF REQUIRED NO, ONLY SCAN NEEDED (test code = MDIFF) DIFFERENTIAL [id number] 11:06:00 Test Item Value Reference Range Interpretation Comments STAIN ACCEPTABILITY (test code = STN ACCEPTABLE) MORPHOLOGY COMMENT (test code = MOC) PLATELET ESTIMATE (test code = PLTEST) PLATELET MORPHOLOGY (test code = PLTMORPH) CBC W/AUTO [id number] 11:05:00 Test Item Value Reference Range Interpretation Comments WHITE BLOOD CELL (test 6.0 K/mm3 4.5-12.5 N code = WBC) RED BLOOD CELL (test code 3.36 mill/mm3 4.0-5.8 L = RBC) HEMOGLOBIN (test code = 8.6 gram/dL 13.0-17.5 L HGB) HEMATOCRIT (test code = 29.6 % 42.0-52.0 L HCT) MEAN CELL VOLUME (test 88.1 fL 80-98 N code = MCV) MEAN CELL HGB (test code 25.6 picogram 27.0-33.0 L = MCH) MEAN CELL HGB 29.1 gram/dL 33.0-36.0 L CONCETRATION (test code = MCHC) RED CELL DISTRIBUTION 20.3 % 11.6-16.2 H WIDTH (test code = RDW) RED CELL DISTRIBUTION 62.6 fL 37.0-51.0 H WIDTH SD (test code = RDW-SD) PLATELET COUNT (test code 101 K/mm3 150-450 L = PLT) MEAN PLATELET VOLUME 10.6 fL 6.7-11.0 N (test code = MPV) NEUTROPHIL % (test code = 77.5 % 39.0-69.0 H NT%) IMMATURE GRANULOCYTE % 0.8 % 0.0-5.0 N (test code = IG%) LYMPHOCYTE % (test code = 12.7 % 25.0-55.0 L LY%) MONOCYTE % (test code = 6.5 % 0.0-10.0 N MO%) EOSINOPHIL % (test code = 2.0 % 0.0-5.0 N EO%) BASOPHIL % (test code = 0.5 % 0.0-1.0 N BA%) NUCLEATED RBC % (test 0.0 % 0-0 N code = NRBC%) NEUTROPHIL # (test code = 4.65 K/mm3 1.8-7.7 N NT#) IMMATURE GRANULOCYTE # 0.05 x10 3/uL 0-0.03 H (test code = IG#) LYMPHOCYTE # (test code = 0.76 K/mm3 1.0-5.0 L LY#) MONOCYTE # (test code = 0.39 K/mm3 0-0.8 N MO#) EOSINOPHIL # (test code = 0.12 K/mm3 0.0-0.5 N EO#) BASOPHIL # (test code = 0.03 K/mm3 0.0-0.2 N BA#) NUCLEATED RBC # (test 0.00 K/mm3 0.0-0.1 N code = NRBC#) MANUAL DIFF REQUIRED NO, ONLY SCAN NEEDED (test code = MDIFF) DIFFERENTIAL [id number] 11:05:00 Test Item Value Reference Range Interpretation Comments STAIN ACCEPTABILITY (test code = STN ACCEPTABLE) CABOT RINGS (test code = CAB) MORPHOLOGY COMMENT (test code = MOC) PLATELET ESTIMATE (test code = PLTEST) PLATELET MORPHOLOGY (test code = PLTMORPH) [id number] 08:01:00 Test Item Value Reference Range Interpretation Comments GLUBED (test code = 134 mg/dL 74-106 H Performe d by certified GLUBED) linking machine operator at [facility] [id number] 20:54:00 Test Item Value Reference Range Interpretation Comments GLUBED (test code = 140 mg/dL 74-106 H Performe d by certified GLUBED) linking machine operator at [facility] CBC W/AUTO [id number] 07:54:00 Test Item Value Reference Range Interpretation Comments WHITE BLOOD CELL 6.9 K/mm3 4.5-12.5 N (test code = WBC) RED BLOOD CELL (test 3.25 mill/mm3 4.0-5.8 L code = RBC) HEMOGLOBIN (test code 8.5 gram/dL 13.0-17.5 L RESULT VERIFIED = HGB) BY REPEAT ANALYSIS HEMATOCRIT (test code 28.1 % 42.0-52.0 L = HCT) MEAN CELL VOLUME 86.5 fL 80-98 N (test code = MCV) MEAN CELL HGB (test 26.2 picogram 27.0-33.0 L code = MCH) MEAN CELL HGB 30.2 gram/dL 33.0-36.0 L CONCETRATION (test code = MCHC) RED CELL DISTRIBUTION 20.0 % 11.6-16.2 H WIDTH (test code = RDW) RED CELL DISTRIBUTION 63.4 fL 37.0-51.0 H WIDTH SD (test code = RDW-SD) PLATELET COUNT (test 114 K/mm3 150-450 L RESULT VERIFIED code = PLT) BY REPEAT ANALYSIS MEAN PLATELET VOLUME 10.1 fL 6.7-11.0 N (test code = MPV) NEUTROPHIL % (test 71.2 % 39.0-69.0 H code = NT%) IMMATURE GRANULOCYTE 0.9 % 0.0-5.0 N % (test code = IG%) LYMPHOCYTE % (test 17.1 % 25.0-55.0 L code = LY%) MONOCYTE % (test code 7.7 % 0.0-10.0 N = MO%) EOSINOPHIL % (test 2.5 % 0.0-5.0 N code = EO%) BASOPHIL % (test code 0.6 % 0.0-1.0 N = BA%) NUCLEATED RBC % (test 0.0 % 0-0 N code = NRBC%) NEUTROPHIL # (test 4.92 K/mm3 1.8-7.7 N code = NT#) IMMATURE GRANULOCYTE 0.06 x10 3/uL 0-0.03 H # (test code = IG#) LYMPHOCYTE # (test 1.18 K/mm3 1.0-5.0 N code = LY#) MONOCYTE # (test code 0.53 K/mm3 0-0.8 N = MO#) EOSINOPHIL # (test 0.17 K/mm3 0.0-0.5 N code = EO#) BASOPHIL # (test code 0.04 K/mm3 0.0-0.2 N = BA#) NUCLEATED RBC # (test 0.00 K/mm3 0.0-0.1 N code = NRBC#) MANUAL DIFF REQUIRED NO, ONLY SCAN (test code = MDIFF) NEEDED DIFFERENTIAL [id number] 07:54:00 Test Item Value Reference Range Interpretation Comments STAIN ACCEPTABILITY (test STAIN ACCEPTABLE code = STN ACCEPTABLE) HYPOCHROMIA (test code = 1+ HYPO) ANISOCYTOSIS (test code = 1+ ANISO) MICROCYTOSIS (test code = 1+ MICR) PLATELET ESTIMATE (test SLIGHTLY DECREASED code = PLTEST) PLATELET MORPHOLOGY (test SIZE VARIABLE code = PLTMORPH) CBC W/AUTO [id number] 07:37:00 Test Item Value Reference Range Interpretation Comments WHITE BLOOD CELL 6.9 K/mm3 4.5-12.5 N (test code = WBC) RED BLOOD CELL (test 3.25 mill/mm3 4.0-5.8 L code = RBC) HEMOGLOBIN (test code 8.5 gram/dL 13.0-17.5 L RESULT VERIFIED = HGB) BY REPEAT ANALYSIS HEMATOCRIT (test code 28.1 % 42.0-52.0 L = HCT) MEAN CELL VOLUME 86.5 fL 80-98 N (test code = MCV) MEAN CELL HGB (test 26.2 picogram 27.0-33.0 L code = MCH) MEAN CELL HGB 30.2 gram/dL 33.0-36.0 L CONCETRATION (test code = MCHC) RED CELL DISTRIBUTION 20.0 % 11.6-16.2 H WIDTH (test code = RDW) RED CELL DISTRIBUTION 63.4 fL 37.0-51.0 H WIDTH SD (test code = RDW-SD) PLATELET COUNT (test 114 K/mm3 150-450 L RESULT VERIFIED code = PLT) BY REPEAT ANALYSIS MEAN PLATELET VOLUME 10.1 fL 6.7-11.0 N (test code = MPV) NEUTROPHIL % (test 71.2 % 39.0-69.0 H code = NT%) IMMATURE GRANULOCYTE 0.9 % 0.0-5.0 N % (test code = IG%) LYMPHOCYTE % (test 17.1 % 25.0-55.0 L code = LY%) MONOCYTE % (test code 7.7 % 0.0-10.0 N = MO%) EOSINOPHIL % (test 2.5 % 0.0-5.0 N code = EO%) BASOPHIL % (test code 0.6 % 0.0-1.0 N = BA%) NUCLEATED RBC % (test 0.0 % 0-0 N code = NRBC%) NEUTROPHIL # (test 4.92 K/mm3 1.8-7.7 N code = NT#) IMMATURE GRANULOCYTE 0.06 x10 3/uL 0-0.03 H # (test code = IG#) LYMPHOCYTE # (test 1.18 K/mm3 1.0-5.0 N code = LY#) MONOCYTE # (test code 0.53 K/mm3 0-0.8 N = MO#) EOSINOPHIL # (test 0.17 K/mm3 0.0-0.5 N code = EO#) BASOPHIL # (test code 0.04 K/mm3 0.0-0.2 N = BA#) NUCLEATED RBC # (test 0.00 K/mm3 0.0-0.1 N code = NRBC#) MANUAL DIFF REQUIRED NO, ONLY SCAN (test code = MDIFF) NEEDED DIFFERENTIAL [id number] 07:37:00 Test Item Value Reference Range Interpretation Comments STAIN ACCEPTABILITY (test code = STN ACCEPTABLE) CABOT RINGS (test code = CAB) MORPHOLOGY COMMENT (test code = MOC) PLATELET ESTIMATE (test code = PLTEST) PLATELET MORPHOLOGY (test code = PLTMORPH) CBC W/AUTO [id number] 07:37:00 Test Item Value Reference Range Interpretation Comments WHITE BLOOD CELL 6.9 K/mm3 4.5-12.5 N (test code = WBC) RED BLOOD CELL (test 3.25 mill/mm3 4.0-5.8 L code = RBC) HEMOGLOBIN (test code 8.5 gram/dL 13.0-17.5 L RESULT VERIFIED = HGB) BY REPEAT ANALYSIS HEMATOCRIT (test code 28.1 % 42.0-52.0 L = HCT) MEAN CELL VOLUME 86.5 fL 80-98 N (test code = MCV) MEAN CELL HGB (test 26.2 picogram 27.0-33.0 L code = MCH) MEAN CELL HGB 30.2 gram/dL 33.0-36.0 L CONCETRATION (test code = MCHC) RED CELL DISTRIBUTION 20.0 % 11.6-16.2 H WIDTH (test code = RDW) RED CELL DISTRIBUTION 63.4 fL 37.0-51.0 H WIDTH SD (test code = RDW-SD) PLATELET COUNT (test 114 K/mm3 150-450 L RESULT VERIFIED code = PLT) BY REPEAT ANALYSIS MEAN PLATELET VOLUME 10.1 fL 6.7-11.0 N (test code = MPV) NEUTROPHIL % (test 71.2 % 39.0-69.0 H code = NT%) IMMATURE GRANULOCYTE 0.9 % 0.0-5.0 N % (test code = IG%) LYMPHOCYTE % (test 17.1 % 25.0-55.0 L code = LY%) MONOCYTE % (test code 7.7 % 0.0-10.0 N = MO%) EOSINOPHIL % (test 2.5 % 0.0-5.0 N code = EO%) BASOPHIL % (test code 0.6 % 0.0-1.0 N = BA%) NUCLEATED RBC % (test 0.0 % 0-0 N code = NRBC%) NEUTROPHIL # (test 4.92 K/mm3 1.8-7.7 N code = NT#) IMMATURE GRANULOCYTE 0.06 x10 3/uL 0-0.03 H # (test code = IG#) LYMPHOCYTE # (test 1.18 K/mm3 1.0-5.0 N code = LY#) MONOCYTE # (test code 0.53 K/mm3 0-0.8 N = MO#) EOSINOPHIL # (test 0.17 K/mm3 0.0-0.5 N code = EO#) BASOPHIL # (test code 0.04 K/mm3 0.0-0.2 N = BA#) NUCLEATED RBC # (test 0.00 K/mm3 0.0-0.1 N code = NRBC#) MANUAL DIFF REQUIRED NO, ONLY SCAN (test code = MDIFF) NEEDED DIFFERENTIAL [id number] 07:37:00 Test Item Value Reference Range Interpretation Comments STAIN ACCEPTABILITY (test code = STN ACCEPTABLE) MORPHOLOGY COMMENT (test code = MOC) PLATELET ESTIMATE (test code = PLTEST) PLATELET MORPHOLOGY (test code = PLTMORPH) CBC W/AUTO [id number] 07:37:00 Test Item Value Reference Range Interpretation Comments WHITE BLOOD CELL 6.9 K/mm3 4.5-12.5 N (test code = WBC) RED BLOOD CELL (test 3.25 mill/mm3 4.0-5.8 L code = RBC) HEMOGLOBIN (test code 8.5 gram/dL 13.0-17.5 L RESULT VERIFIED = HGB) BY REPEAT ANALYSIS HEMATOCRIT (test code 28.1 % 42.0-52.0 L = HCT) MEAN CELL VOLUME 86.5 fL 80-98 N (test code = MCV) MEAN CELL HGB (test 26.2 picogram 27.0-33.0 L code = MCH) MEAN CELL HGB 30.2 gram/dL 33.0-36.0 L CONCETRATION (test code = MCHC) RED CELL DISTRIBUTION 20.0 % 11.6-16.2 H WIDTH (test code = RDW) RED CELL DISTRIBUTION 63.4 fL 37.0-51.0 H WIDTH SD (test code = RDW-SD) PLATELET COUNT (test 114 K/mm3 150-450 L RESULT VERIFIED code = PLT) BY REPEAT ANALYSIS MEAN PLATELET VOLUME 10.1 fL 6.7-11.0 N (test code = MPV) NEUTROPHIL % (test 71.2 % 39.0-69.0 H code = NT%) IMMATURE GRANULOCYTE 0.9 % 0.0-5.0 N % (test code = IG%) LYMPHOCYTE % (test 17.1 % 25.0-55.0 L code = LY%) MONOCYTE % (test code 7.7 % 0.0-10.0 N = MO%) EOSINOPHIL % (test 2.5 % 0.0-5.0 N code = EO%) BASOPHIL % (test code 0.6 % 0.0-1.0 N = BA%) NUCLEATED RBC % (test 0.0 % 0-0 N code = NRBC%) NEUTROPHIL # (test 4.92 K/mm3 1.8-7.7 N code = NT#) IMMATURE GRANULOCYTE 0.06 x10 3/uL 0-0.03 H # (test code = IG#) LYMPHOCYTE # (test 1.18 K/mm3 1.0-5.0 N code = LY#) MONOCYTE # (test code 0.53 K/mm3 0-0.8 N = MO#) EOSINOPHIL # (test 0.17 K/mm3 0.0-0.5 N code = EO#) BASOPHIL # (test code 0.04 K/mm3 0.0-0.2 N = BA#) NUCLEATED RBC # (test 0.00 K/mm3 0.0-0.1 N code = NRBC#) MANUAL DIFF REQUIRED NO, ONLY SCAN (test code = MDIFF) NEEDED DIFFERENTIAL [id number] 07:37:00 Test Item Value Reference Range Interpretation Comments STAIN ACCEPTABILITY (test code = STN ACCEPTABLE) MORPHOLOGY COMMENT (test code = MOC) PLATELET ESTIMATE (test code = PLTEST) PLATELET MORPHOLOGY (test code = PLTMORPH) COMPREHENSIVE METABOLIC [id number] 07:36:00 Test Item Value Reference Range Interpretation Comments SODIUM (test code = 135 mmol/L 136-145 L NA) POTASSIUM (test code = 4.0 mmol/L 3.5-5.1 N K) CHLORIDE (test code = 104.0 mmol/L 98-107 N CL) CARBON DIOXIDE (test 24.0 mmol/L 21-32 N code = CO2) ANION GAP (test code = 11.0 10-20 N GAP) GLUCOSE (test code = 146 mg/dL 74-106 H GLU) BLOOD UREA NITROGEN 12 mg/dL 7-18 N (test code = BUN) GLOMERULAR FILTRATION > 60 mL/min >=60 Estima angela GFR by RATE (test code = GFR) using Modified MDRD formula.Chronic kidney disease is defined as [facility] kidney damageor GFR <60 mL/min/1.73 m2 for >3 months. CREATININE (test code 1.00 mg/dL 0.7-1.3 N = CREAT) BUN/CREATININE RATIO 12.4 10-20 N (test code = BUN/CREA) TOTAL PROTEIN (test 5.7 gram/dL 6.4-8.2 L code = PROT) ALBUMIN (test code = 2.8 g/dL 3.4-5.0 L ALB) GLOBULIN (test code = 2.9 gram/dL 2.7-4.2 N GLOB) ALBUMIN/GLOBULIN RATIO 1.0 0.75-1.50 N (test code = A/G) CALCIUM (test code = 8.0 mg/dL 8.5-10.1 L CA) BILIRUBIN TOTAL (test 0.90 mg/dL 0.0-1.0 N code = BILT) SGOT/AST (test code = 39 IUnit/L 15-37 H AST) SGPT/ALT (test code = 35 IUnit/L 12-78 N ALT) ALKALINE PHOSPHATASE 220 IUnit/L 45-117 H Note change in TOTAL (test code = reference range due ALKP) to change in reagent. [id number] 07:36:00 Test Item Value Reference Range Interpretation Comments MAGNESIUM (test code = MAG) 1.8 mg/dL 1.8-2.4 N [id number] 07:36:00 Test Item Value Reference Range Interpretation Comments GLYCOSYLATED HEMOGLOBIN (HA1C) 5.3 % HbA1 4.8-6.0 N (test code = GLYHGB) ESTIMATED AVERAGE GLUCOSE (test 105 MG/DL code = EAG) CBC W/AUTO [id number] 07:36:00 Test Item Value Reference Range Interpretation Comments WHITE BLOOD CELL 6.9 K/mm3 4.5-12.5 N (test code = WBC) RED BLOOD CELL (test 3.25 mill/mm3 4.0-5.8 L code = RBC) HEMOGLOBIN (test code 8.5 gram/dL 13.0-17.5 L RESULT VERIFIED = HGB) BY REPEAT ANALYSIS HEMATOCRIT (test code 28.1 % 42.0-52.0 L = HCT) MEAN CELL VOLUME 86.5 fL 80-98 N (test code = MCV) MEAN CELL HGB (test 26.2 picogram 27.0-33.0 L code = MCH) MEAN CELL HGB 30.2 gram/dL 33.0-36.0 L CONCETRATION (test code = MCHC) RED CELL DISTRIBUTION 20.0 % 11.6-16.2 H WIDTH (test code = RDW) RED CELL DISTRIBUTION 63.4 fL 37.0-51.0 H WIDTH SD (test code = RDW-SD) PLATELET COUNT (test 114 K/mm3 150-450 L RESULT VERIFIED code = PLT) BY REPEAT ANALYSIS MEAN PLATELET VOLUME 10.1 fL 6.7-11.0 N (test code = MPV) NEUTROPHIL % (test 71.2 % 39.0-69.0 H code = NT%) IMMATURE GRANULOCYTE 0.9 % 0.0-5.0 N % (test code = IG%) LYMPHOCYTE % (test 17.1 % 25.0-55.0 L code = LY%) MONOCYTE % (test code 7.7 % 0.0-10.0 N = MO%) EOSINOPHIL % (test 2.5 % 0.0-5.0 N code = EO%) BASOPHIL % (test code 0.6 % 0.0-1.0 N = BA%) NUCLEATED RBC % (test 0.0 % 0-0 N code = NRBC%) NEUTROPHIL # (test 4.92 K/mm3 1.8-7.7 N code = NT#) IMMATURE GRANULOCYTE 0.06 x10 3/uL 0-0.03 H # (test code = IG#) LYMPHOCYTE # (test 1.18 K/mm3 1.0-5.0 N code = LY#) MONOCYTE # (test code 0.53 K/mm3 0-0.8 N = MO#) EOSINOPHIL # (test 0.17 K/mm3 0.0-0.5 N code = EO#) BASOPHIL # (test code 0.04 K/mm3 0.0-0.2 N = BA#) NUCLEATED RBC # (test 0.00 K/mm3 0.0-0.1 N code = NRBC#) MANUAL DIFF REQUIRED NO, ONLY SCAN (test code = MDIFF) NEEDED DIFFERENTIAL [id number] 07:36:00 Test Item Value Reference Range Interpretation Comments STAIN ACCEPTABILITY (test code = STN ACCEPTABLE) CABOT RINGS (test code = CAB) MORPHOLOGY COMMENT (test code = MOC) PLATELET ESTIMATE (test code = PLTEST) PLATELET MORPHOLOGY (test code = PLTMORPH) COMPREHENSIVE METABOLIC [id number] 07:27:00 Test Item Value Reference Range Interpretation Comments SODIUM (test code = NA) 135 mmol/L 136-145 L POTASSIUM (test code = K) 4.0 mmol/L 3.5-5.1 N CHLORIDE (test code = CL) 104.0 mmol/L 98-107 N CARBON DIOXIDE (test code = CO2) mmol/L 21-32 ANION GAP (test code = GAP) 10-20 GLUCOSE (test code = GLU) mg/dL 74-106 BLOOD UREA NITROGEN (test code = mg/dL 7-18 BUN) GLOMERULAR FILTRATION RATE (test mL/min >=60 code = GFR) CREATININE (test code = CREAT) mg/dL 0.7-1.3 BUN/CREATININE RATIO (test code 10-20 = BUN/CREA) TOTAL PROTEIN (test code = PROT) gram/dL 6.4-8.2 ALBUMIN (test code = ALB) g/dL 3.4-5.0 GLOBULIN (test code = GLOB) gram/dL 2.7-4.2 ALBUMIN/GLOBULIN RATIO (test 0.75-1.50 code = A/G) CALCIUM (test code = CA) mg/dL 8.5-10.1 BILIRUBIN TOTAL (test code = mg/dL 0.0-1.0 BILT) SGOT/AST (test code = AST) IUnit/L 15-37 SGPT/ALT (test code = ALT) IUnit/L 12-78 ALKALINE PHOSPHATASE TOTAL (test IUnit/L 45-117 code = ALKP) [id number] 07:27:00 Test Item Value Reference Range Interpretation Comments MAGNESIUM (test code = MAG) mg/dL 1.8-2.4 PROTHROMBIN [id number] 15:37:00 Test Item Value Reference Range Interpretation Comments PROTHROMBIN TIME 11.0 seconds 9.0-14.0 N PATIENT (test code = PTP) INTERNATIONAL NORMAL 0.9 0.8-1.2 N The the rapeutic range RATIO (test code = for oral INR) anticoagulant t herapy formost indicat ions is an internati onal normalized rati o (INR)of between 2.0 and 3.0. The recommended therapeutic INR range for various cli nical situations is l isted below: Clinical Situat ion INR range Pulmonary embol ism treatment (2.0-3.0)Venous thrombosis treatmentVenous thrombosis prophylaxis (hi gh risk surgery)Prevent ion of systemic emboli sm from: Acute myocardial infa rction Valvular heart disease Atrial fibrillation Mechanical pros thetic heart valves (2.5-3.5) IS PATIENT ON ANTICOAGULANTS? NTHROMBOPLASTIN TIME [id number] 15:37:00 Test Item Value Reference Range Interpretation Comments THROMBOPLASTIN TIME PARTIAL 20.7 seconds 25.0-36.5 L (test code = PTT) IS PATIENT ON ANTICOAGULANTS? [id number] 15:16:00 Test Item Value Reference Range Interpretation Comments PHOSPHORUS (test code = PHOS) 1.5 mg/dL 2.5-4.9 L [id number] 15:16:00 Test Item Value Reference Range Interpretation Comments AMYLASE (test code = MATTHEW) 83 Unit/L 25-115 N [id number] 15:16:00 Test Item Value Reference Range Interpretation Comments MAGNESIUM (test code = MAG) 1.7 mg/dL 1.8-2.4 L VITAMIN [id number] 15:16:00 Test Item Value Reference Range Interpretation Comments VITAMIN B12 (test code = VITB12) 331 pg/mL 193-986 N FOLIC [id number] 15:16:00 Test Item Value Reference Range Interpretation Comments FOLIC ACID (test code = FOL) 3.6 ng/mL 3.10-17.50 N [id number] 14:51:00 Test Item Value Reference Range Interpretation Comments AMMONIA (test code = AMM) 46 umol/L 11-32 H BASIC METABOLIC [id number] 13:18:00 Test Item Value Reference Range Interpretation Comments SODIUM (test code = 136 mmol/L 136-145 N NA) POTASSIUM (test code 3.4 mmol/L 3.5-5.1 L = K) CHLORIDE (test code = 101.0 mmol/L 98-107 N CL) CARBON DIOXIDE (test 27.0 mmol/L 21-32 N code = CO2) ANION GAP (test code 11.4 10-20 N = GAP) GLUCOSE (test code = 154 mg/dL 74-106 H GLU) BLOOD UREA NITROGEN 12 mg/dL 7-18 N (test code = BUN) GLOMERULAR FILTRATION 59 mL/min >=60 Estima angela GFR by RATE (test code = using Meena fied MDRD GFR) formula.Chronic kidney disease is defined as [facility] er kidney damageor GFR <60 mL/min/1.73 m2 for >3 months. CREATININE (test code 1.30 mg/dL 0.7-1.3 N = CREAT) BUN/CREATININE RATIO 9.5 10-20 L (test code = BUN/CREA) CALCIUM (test code = 8.3 mg/dL 8.5-10.1 L CA) HEPATIC FUNCTION [id number] 13:18:00 Test Item Value Reference Range Interpretation Comments TOTAL PROTEIN (test 7.1 gram/dL 6.4-8.2 N code = PROT) ALBUMIN (test code = 3.6 g/dL 3.4-5.0 N ALB) GLOBULIN (test code = 3.5 gram/dL 2.7-4.2 N GLOB) ALBUMIN/GLOBULIN RATIO 1.0 0.75-1.50 N (test code = A/G) BILIRUBIN TOTAL (test 0.60 mg/dL 0.0-1.0 N code = BILT) BILIRUBIN DIRECT (test 0.32 mg/dL 0.0-0.20 H code = BILD) SGOT/AST (test code = 41 IUnit/L 15-37 H AST) SGPT/ALT (test code = 48 IUnit/L 12-78 N ALT) ALKALINE PHOSPHATASE 264 IUnit/L 45-117 H Note change in TOTAL (test code = reference range due ALKP) to change in reagent. CREATINE KINASE (CK)[id number] 13:18:00 Test Item Value Reference Range Interpretation Comments CREATINE KINASE (CK) (test code = 120 IUnit/L 26-208 N CK) [id number] 13:18:00 Test Item Value Reference Range Interpretation Comments LIPASE (test code = LIP) 320 U/L 73.0-393.0 N [id number] 13:18:00 Test Item Value Reference Range Interpretation Comments TROPONIN-I (test code = TROPI) <0.015 ng/mL 0-0.045 N [id number] 13:18:00 Test Item Value Reference Range Interpretation Comments ACETAMINOPHEN (test < 10 mcg/mL 10-30 L A RANGE OF 10-30 code = ACET) mcg/mL IS A THERAPEUTIC RAN GE. TOXIC CONCENTRATIONS: >150 mcg/mL AT 4 JAMIR RS AFTER INGESTION >= 50 mcg/mL AT 12 HOURS AFTER INGESTION [id number] 13:18:00 Test Item Value Reference Range Interpretation Comments SALICYLATE (test code = REN) < 1.7 mg/dL 2.8-20.0 L [id number] 13:18:00 Test Item Value Reference Range Interpretation Comments ALCOHOL (test code 313 mg/dL 0.0-3.0 H --------- --------INTERPRE = ALC) TIVE DATA NOTE: POSITIVE SCREEN ING RESULTS SHOULD BE CONSIDERED PRESUMPTIVE.WHE N COLLECTED FOR M EDICAL PURPOSES ONLY. SPECIMEN WILL NOTBE KATIE ECTED BY CHAIN OF CUSTOD Y.IF A CONFIRMATION OF POSITIVE RESULTS IS MARCELLA RED, ACONFIRMATION T EST MUST BE REQUESTED BY THE PHYSICIAN AT AN ADDITIONAL CHARGE TO THE [facility]. URINALYSIS [id number] 13:15:00 Test Item Value Reference Range Interpretation Comments UA COLOR (test code = COLU) Light-Yellow YELLOW UA APPEARANCE (test code = CLEAR CLEAR APPU) UA GLUCOSE DIPSTICK (test NEGATIVE mg/dL NEGATIVE code = DGLUU) UA BILIRUBIN DIPSTICK (test NEGATIVE mg/dL NEGATIVE code = BILU) UA KETONE DIPSTICK (test code NEGATIVE mg/dL NEGATIVE = KETU) UA SPECIFIC GRAVITY (test 1.008 1.001-1.035 code = SGU) UA BLOOD DIPSTICK (test code Negative mg/dL NEGATIVE = BENI) UA PH DIPSTICK (test code = 7.0 5.0-8.0 TAY) UA PROTEIN DIPSTICK (test 50 (1+) mg/dL NEGATIVE A code = PROU) UA UROBILINIOGEN DIPSTICK Normal mg/dL NEGATIVE (test code = URO) UA NITRITE DIPSTICK (test NEGATIVE NEGATIVE code = SUMAYA) UA LEUKOCYTE ESTERASE W NEGATIVE Ian/uL NEGATIVE REFLEX (test code = LEUUR) UA WBC (test code = WBCU) 0-5 per HPF 0-5 UA RBC (test code = RBCU) 0-2 #/HPF 0-5 UA EPITHELIAL CELLS (test FEW per HPF FEW code = EPIU) UA BACTERIA (test code = FEW #/HPF NONE A BACU) Urine Source? Clean CatchDRUGS OF ABUSE SCREEN [id number] 13:15:00 Test Item Value Reference Range Interpretation Comments URN COCAINE (test code = COCAURN) NEGATIVE <300 ng/mL URN CANNABINOIDS (test code = NEGATIVE <50 ng/mL CANNABURN) URN AMPHETAMINE (test code = NEGATIVE <1000 ng/mL AMPHETURN) URN BARBITURATE (test code = NEGATIVE <200 ng/mL BARBITURN) URN BENZODIAZEPINE (test code = NEGATIVE <200 ng/mL BENZOURN) URN OPIATES (test code = OPIATURN) NEGATIVE <300 ng/mL URN PHENCYCLIDINE (PCP) (test code = NEGATIVE <25 ng/mL PHENCURN) URN METHADONE (test code = METHAURN) NEGATIVE <300 ng/mL Urine Source? Clean CatchBASIC METABOLIC [id number] 13:09:00 Test Item Value Reference Range Interpretation Comments SODIUM (test code = NA) 136 mmol/L 136-145 N POTASSIUM (test code = K) 3.4 mmol/L 3.5-5.1 L CHLORIDE (test code = CL) 101.0 mmol/L 98-107 N CARBON DIOXIDE (test code = CO2) mmol/L 21-32 ANION GAP (test code = GAP) 10-20 GLUCOSE (test code = GLU) mg/dL 74-106 BLOOD UREA NITROGEN (test code = mg/dL 7-18 BUN) GLOMERULAR FILTRATION RATE (test mL/min >=60 code = GFR) CREATININE (test code = CREAT) mg/dL 0.7-1.3 BUN/CREATININE RATIO (test code 10-20 = BUN/CREA) CALCIUM (test code = CA) mg/dL 8.5-10.1 HEPATIC FUNCTION [id number] 13:09:00 Test Item Value Reference Range Interpretation Comments TOTAL PROTEIN (test code = PROT) gram/dL 6.4-8.2 ALBUMIN (test code = ALB) g/dL 3.4-5.0 GLOBULIN (test code = GLOB) gram/dL 2.7-4.2 ALBUMIN/GLOBULIN RATIO (test code = 0.75-1.50 A/G) BILIRUBIN TOTAL (test code = BILT) mg/dL 0.0-1.0 BILIRUBIN DIRECT (test code = BILD) mg/dL 0.0-0.20 SGOT/AST (test code = AST) IUnit/L 15-37 SGPT/ALT (test code = ALT) IUnit/L 12-78 ALKALINE PHOSPHATASE TOTAL (test IUnit/L 45-117 code = ALKP) CREATINE KINASE (CK)2018-09-19 13:09:00 Test Item Value Reference Range Interpretation Comments CREATINE KINASE (CK) (test code = IUnit/L 26-208 CK) [id number] 13:09:00 Test Item Value Reference Range Interpretation Comments LIPASE (test code = LIP) U/L 73.0-393.0 [id number] 13:09:00 Test Item Value Reference Range Interpretation Comments TROPONIN-I (test code = TROPI) ng/mL 0-0.045 [id number] 13:09:00 Test Item Value Reference Range Interpretation Comments ACETAMINOPHEN (test code = ACET) mcg/mL 10-30 [id number] 13:09:00 Test Item Value Reference Range Interpretation Comments SALICYLATE (test code = REN) mg/dL 2.8-20.0 [id number] 13:09:00 Test Item Value Reference Range Interpretation Comments ALCOHOL (test code = ALC) mg/dL 0-3 URINALYSIS [id number] 13:02:00 Test Item Value Reference Range Interpretation Comments UA COLOR (test code = COLU) Light-Yellow YELLOW UA APPEARANCE (test code = CLEAR CLEAR APPU) UA GLUCOSE DIPSTICK (test NEGATIVE mg/dL NEGATIVE code = DGLUU) UA BILIRUBIN DIPSTICK (test NEGATIVE mg/dL NEGATIVE code = BILU) UA KETONE DIPSTICK (test code NEGATIVE mg/dL NEGATIVE = KETU) UA SPECIFIC GRAVITY (test 1.008 1.001-1.035 code = SGU) UA BLOOD DIPSTICK (test code Negative mg/dL NEGATIVE = BENI) UA PH DIPSTICK (test code = 7.0 5.0-8.0 TAY) UA PROTEIN DIPSTICK (test 50 (1+) mg/dL NEGATIVE A code = PROU) UA UROBILINIOGEN DIPSTICK Normal mg/dL NEGATIVE (test code = URO) UA NITRITE DIPSTICK (test NEGATIVE NEGATIVE code = SUMAYA) UA LEUKOCYTE ESTERASE W NEGATIVE Ian/uL NEGATIVE REFLEX (test code = LEUUR) UA WBC (test code = WBCU) 0-5 per HPF 0-5 UA RBC (test code = RBCU) 0-2 #/HPF 0-5 UA EPITHELIAL CELLS (test FEW per HPF FEW code = EPIU) UA BACTERIA (test code = FEW #/HPF NONE A BACU) Urine Source? Clean CatchDRUGS OF ABUSE SCREEN [id number] 13:02:00 Test Item Value Reference Range Interpretation Comments URN COCAINE (test code = COCAURN) <300 ng/mL URN CANNABINOIDS (test code = <50 ng/mL CANNABURN) URN AMPHETAMINE (test code = AMPHETURN) <1000 ng/mL URN BARBITURATE (test code = BARBITURN) <200 ng/mL URN BENZODIAZEPINE (test code = <200 ng/mL BENZOURN) URN OPIATES (test code = OPIATURN) <300 ng/mL URN PHENCYCLIDINE (PCP) (test code = <25 ng/mL PHENCURN) URN METHADONE (test code = METHAURN) <300 ng/mL Urine Source? Clean CatchCBC W/O [id number] 12:57:00 Test Item Value Reference Range Interpretation Comments WHITE BLOOD CELL (test code = 8.6 K/mm3 4.5-12.5 N WBC) RED BLOOD CELL (test code = 4.28 mill/mm3 4.0-5.8 N RBC) HEMOGLOBIN (test code = HGB) 10.8 gram/dL 13.0-17.5 L HEMATOCRIT (test code = HCT) 36.3 % 42.0-52.0 L MEAN CELL VOLUME (test code = 84.8 fL 80-98 N MCV) MEAN CELL HGB (test code = MCH) 25.2 picogram 27.0-33.0 L MEAN CELL HGB CONCETRATION 29.8 gram/dL 33.0-36.0 L (test code = MCHC) RED CELL DISTRIBUTION WIDTH 20.1 % 11.6-16.2 H (test code = RDW) PLATELET COUNT (test code = 204 K/mm3 150-450 N PLT) MEAN PLATELET VOLUME (test code 10.2 fL 6.7-11.0 N = MPV)"
--- NOTE | 2022-07-18 12:09 | RAD REPORT ---
EXAM DESCRIPTION: CT - Stone Protocol - 07/18/2022 11:54 am CLINICAL HISTORY: Flank pain. FLANK PAIN COMPARISON: No comparisons TECHNIQUE: Axial images were obtained without oral or IV contrast. Lack of contrast limits solid org an and vascular assessment. The [id number] spans the entirety of the system partially obscuring uppermost abdomen and lung bases. Coronal reformatted images were obtained and reviewed. All CT scans are performed using dose optimization technique as appropriate and may include automated exposure control or mA/KV adjustment according to patient size. FINDINGS: The lower lung garcia are clear. Postsurgical changes at the gastroesophageal junction. Sm all hiatal hernia. Imaged portions of the liver and spleen show no suspicious findings on non-contrast imaging.Cholelith iasis. The pancreas and adrenal glands are normal. No pathologic lymphadenopathy in the abdomen or pe lvis. Moderate stool is present throughout the colon. No urinary tract stones or obstructive uropathy. No bowel obstruction, free air, free fluid or abscess. Normal appendix noted. Postsurgical lumbar spine. IMPRESSION: No urinary tract stones or obstructive uropathy. Cholelithiasis.
--- NOTE | 2022-07-18 12:14 | RAD REPORT ---
EXAM DESCRIPTION: RAD - Chest Single View - 07/18/2022 12:08 pm CLINICAL HISTORY: COUGH Chest pain. COMPARISON: No comparisons FINDINGS: Portable technique limits examination quality. The lungs are grossly clear. The heart is normal in size. No displaced fractures. IMPRESSION: No acute intrathoracic process suspected.
[2022-07-18 13:10] LABS: Specific Gravity 1.028 (1.005-1.030); Urine Bacteria None Seen /HPF (<20); Urine Bilirubin 1+ (Negative); Urine Blood Negative (Negative); Urine Clarity Clear (Clear); Urine Color Yellow (Yellow); Urine Glucose NEGATIVE (Negative); Urine Mucus Slight /HPF (None Seen); Urine Protein 1+ (Negative); Urine RBC <5 /HPF (None Seen); Urine Urobilinogen 1+ (Normal)
[2022-07-18] MEDS ORDERED: NA CHLORIDE 0.9% 1,000 ML ONE (13:10)
[2022-07-18 13:26] LABS: Absolute Lymphocytes (CBC) 1.6 K/uL (0.7-4.9); Lymphocytes % 27.3 % (15.3-44.8); MCV 72.4 fL (80-100); MPV 7.3 fL (7.6-11.3); RBC Red Blood Cell Count 3.58 M/uL (4.33-5.43)
[2022-07-18 13:53] LABS: Anisocytosis 2+; Blood Morphology Comment NOTED (NOT SEEN); Hypochromasia 2+; Platelet Estimate ADEQ
[2022-07-18 13:57] LABS: Albumin 2.9 g/dL (3.4-5.0); Bilirubin Total 2.4 mg/dL (0.2-1.0); Potassium 4.1 mEq/L (3.5-5.1); Protein, Total 7.6 g/dL (6.4-8.2)
[2022-07-18] MEDS ORDERED: CEFTRIAXONE 1000 MG/VIAL ONE (14:19)
--- NOTE | 2022-07-18 14:56 | EDPHYS ---
Physician Documentation [facility] Name: Jerry Hernandez Age: 51 yrs Sex: Male : 1970 Arrival Date: 07/18/2022 Time: 11:19 Bed 9 Private MD: ED Physician Jeancarlos Kim HPI: 07/18 14:46 This 51 yrs old Male presents to ER via Ambulatory with complaints of Fever, sal Urinary Problem, Back Pain. 14:46 The patient reports fever, that was measured at 99 degrees Fahrenheit. Onset: The sal symptoms/episode began/occurred 14 day(s) ago. Modifying factors: there are no obvious modifying factors. Associated signs and symptoms: Pertinent positives: backache. Severity of symptoms: At their worst the symptoms were mild moderate in the emergency department the symptoms. The patient has experienced similar episodes in the past, multiple times. Historical: - Allergies: 12:35 No Known Allergies; ap3 - PSHx: 12:35 back sx; gastric bypass; knee sx; ap3 - Immunization history:: Client reports receiving the 2nd dose of the Covid vaccine. - Social history:: Smoking status: Patient denies any tobacco usage or history of. Patient uses alcohol, occasionally. ROS: 14:48 Constitutional: Negative for fever, chills, and weight loss, Eyes: Negative for injury, sal pain, redness, and discharge, ENT: Negative for injury, pain, and discharge, Neck: Negative for injury, pain, and swelling, Cardiovascular: Negative for chest pain, palpitations, and edema, Respiratory: Negative for shortness of breath, cough, wheezing, and pleuritic chest pain, Back: Negative for injury and pain, : Negative for injury, bleeding, discharge, and swelling, MS/Extremity: Negative for injury and deformity, Skin: Negative for injury, rash, and discoloration, Neuro: Negative for headache, weakness, numbness, tingling, and seizure, Psych: Negative for depression, anxiety, suicide ideation, homicidal ideation, and hallucinations, Allergy/Immunology: Negative for hives, rash, and allergies, Endocrine: Negative for neck swelling, polydipsia, polyuria, polyphagia, and marked weight changes. 14:48 Abdomen/GI: Positive for abdominal pain, of the right upper quadrant. 14:48 Back: Positive for decreased range of motion, flank pain, bilaterally. Exam: 14:48 Constitutional: This is a well developed, well nourished patient who is awake, alert, sal and in no acute distress. Head/Face: Normocephalic, atraumatic. Eyes: Pupils equal round and reactive to light, extra-ocular motions intact. Lids and lashes normal. Conjunctiva and sclera are non-icteric and not injected. Cornea within normal limits. Periorbital areas with no swelling, redness, or edema. ENT: Nares patent. No nasal discharge, no septal abnormalities noted. Tympanic membranes are normal and external auditory canals are clear. Oropharynx with no redness, swelling, or masses, exudates, or evidence of obstruction, uvula midline. Mucous membranes moist. Neck: Trachea midline, no thyromegaly or masses palpated, and no cervical lymphadenopathy. Supple, full range of motion without nuchal rigidity, or vertebral point tenderness. No Meningismus. Chest/axilla: Normal chest wall appearance and motion. Nontender with no deformity. No lesions are appreciated. Cardiovascular: Regular rate and rhythm with a normal S1 and S2. No gallops, murmurs, or rubs. Normal PMI, no JVD. No pulse deficits. Respiratory: Lungs have equal breath sounds bilaterally, clear to auscultation and percussion. No rales, rhonchi or wheezes noted. No increased work of breathing, no retractions or nasal flaring. Abdomen/GI: Soft, non-tender, with normal bowel sounds. No distension or tympany. No guarding or rebound. No evidence of tenderness throughout. Male : Normal genitalia with no discharge or lesions. MS/ Extremity: Pulses equal, no cyanosis. Neurovascular intact. Full, normal range of motion. Neuro: Awake and alert, GCS 15, oriented to person, place, time, and situation. Cranial nerves II-XII grossly intact. Motor strength 5/5 in all extremities. Sensory grossly intact. Cerebellar exam normal. Normal gait. Psych: Awake, alert, with orientation to person, place and time. Behavior, mood, and affect are within normal limits. 14:48 Abdomen/GI: Inspection: obese Bowel sounds: normal, Palpation: abdomen is soft and non-tender, Liver: no appreciated palpable abnormalities, Hernia: not appreciated. 14:48 Back: pain, that is mild, of the lumbar area, ROM is normal, normal spinal alignment noted, CVA tenderness, is absent. 14:48 Musculoskeletal/extremity: ROM: no acute changes, intact in all extremities, Circulation is intact in all extremities. Sensation intact. Compartment Syndrome exam of affected extremity: is normal. DVT Exam: No signs of deep vein thrombosis. no pain, no swelling, no tenderness, negative Homans' sign noted on exam, no appreciated bluish discoloration, no erythema, no increased warmth. 16:32 ECG was reviewed by the Attending Physician. [facility] Vital Signs: 12:32 BP 128 / 82; Pulse 76; Resp 17; Temp 99; Pulse Ox 99% ; Weight 117.93 kg; Height 6 ft. ap3 0 in. ; 14:18 BP 143 / 68; Pulse 80; Resp 18 S; Pulse Ox 98% ; aa5 17:16 BP 132 / 80; Pulse 78; Resp 16; Pulse Ox 99% on R/A; mb9 12:32 Body Mass Index 35.26 (117.93 kg, 182.88 cm) ap3 MDM: 11:30 Patient medically screened. [facility] 14:51 Differential diagnosis: bacterial infection, UTI, gastroenteritis, arthritis, sal Cholelithiasis Hydronephrosis Obesity Osteoarthritis Peptic Ulcer Ureterolithiasis. Data reviewed: vital signs, nurses notes, lab test result(s), EKG, radiologic studies, CT scan, ultrasound. Consideration of Admission/Observation Patient was admitted/placed on observation. Escalation of care including admission/observation considered. Management of patient was discussed with the following: Fund Controller: jaime , mrcp up. Independent interpretation of the following test(s) in the Emergency Department EKG: See my EKG interpretation above. Test considered but Not performed: Ultrasound no bilateral usg. Care significantly affected by the following chronic conditions: anemia, back pain, fever. 07/18 11:34 Order name: CBC with Diff; Complete Time: 14: [facility] 07/18 11:34 Order name: Comprehensive Metabolic Panel; Complete Time: 14: [facility] 07/18 11:34 Order name: Lipase; Complete Time: 14: [facility] 07/18 11:34 Order name: Blood Culture Adult (2) [facility] 07/18 11:34 Order name: Lactate w/ 2H reflex if indic.; Complete Time: 14: [facility] 07/18 11:34 Order name: Urinalysis w/ reflexes; Complete Time: 14:[address] [facility] 07/18 13:42 Order name: Manual Differential; Complete Time: 14:09 [facility] 07/18 14:43 Order name: AMMONIA; Complete Time: 16:[address] [facility] 07/18 14:43 Order name: Type And Screen [facility] 07/18 14:43 Order name: PT-INR; Complete Time: 16:[address] [facility] 07/18 15:18 Order name: Tylenol Level; Complete Time: 16:[address] [facility] 07/18 16:14 Order name: Hemoglobin A1c [facility] 07/18 16:42 Order name: Hemoglobin A1c [facility] 07/18 16:42 Order name: Lipid Profile [facility] 07/18 17:11 Order name: ABO/RH no charge [facility] 07/18 11:34 Order name: CT Stone Protocol; Complete Time: 14:[address] [facility] 07/18 11:34 Order name: Chest Single View XRAY; Complete Time: 14:[address] [facility] 07/18 14:43 Order name: US Abdomen Limited; Complete Time: 16:[address] [facility] 07/18 14:56 Order name: Cholangiogram [facility] 07/18 14:43 Order name: EKG; Complete Time: 14:[address] [facility] 07/18 14:43 Order name: EKG - Nurse/Tech; Complete Time: 16:[address] [facility] EC:32 Rate is 70 beats/min. Rhythm is regular. QRS [place] is Normal. PA interval is normal. QRS sal interval is normal. QT interval is normal. No Q waves. T waves are Normal. No ST changes noted. Clinical impression: Normal ECG, NSR w/ Non-specific ST/T Changes, and No evidence of ischemia. Interpreted by me. Reviewed by me. Administered Medications: 13:33 Drug: NS 0.9% IV 1000 ml Route: IV; Rate: 1 bolus; Site: left antecubital; mb9 14:20 Drug: Rocephin IV 1 grams Route: IV; Rate: per protocol; Site: left antecubital; mb9 15:35 Drug: Ativan IVP 2 mg Route: IVP; Site: left antecubital; mb9 15:37 Drug: Famotidine IVP 20 mg Route: IVP; Site: left antecubital; mb9 17:10 Drug: Piperacillin-Tazobactam IVPB 3.375 grams Route: IVPB; Infused Over: 60 mins; mb9 Site: left antecubital; Disposition Summary: 07/18/22 14:56 Hospitalization Ordered Hospitalization Status: Inpatient Admission sal Provider: Bob Rodriguez cha Location: Telemetry/MedSurg (Inpatient) sal Condition: Stable sal Problem: new sal Symptoms: are unchanged sal Bed/Room Type: Standard sal Room Assignment: 205(07/18/22 16:42) dw Diagnosis - Anemia, unspecified sal - Fever, unspecified sal - Abnormal level of enzymes in specimens from digestive organs and abdominal cavity - sal transaminases, total bilirubin - Calculus of gallbladder without cholecystitis with obstruction - CHOLEDOCOLITHIASIS sal Forms: - Medication Reconciliation Form sal - SBAR form sal Signatures: Dispatcher [employer] EDMS Ilsa Zafar RN RN dw Anderson, Corey, MD MD cha Prokisch, Amanda RN RN [email or web address] Alejandra Rick RN RN mb9 Corrections: (The following items were deleted from the chart) 13:42 13:32 CBC Smear Scan ordered. EDSC EDMS 16:35 14:56 Other cholelithiasis without obstruction sal [facility] 16:42 14:56 sal dw
--- NOTE | 2022-07-18 14:56 | ER ---
Nurse's Notes [facility] Name: Jerry Hernandez Age: 51 yrs Sex: Male : 1970 Arrival Date: 07/18/2022 Time: 11:19 Bed 9 Private MD: Diagnosis: Anemia, unspecified;Fever, unspecified;Abnormal level of enzymes in specimens from digestive organs and abdominal cavity-transaminases, total bilirubin;Calculus of gallbladder without cholecystitis with obstruction-CHOLEDOCOLITHIASIS Presentation: 07/18 12:32 Chief complaint: Patient states: he has been having fevers, and dark urine with burning ap3 that is intermittent for approx one month now. Patient states he has been seen by urgent cares but does not have a PCP at this time. Patient currently reports low back pain, fever, chills, burning urination and dark urine. He states he recently was prescribed antibiotics at an urgent care (ciprofloxacin 500mg)) on 07/11/2022. Coronavirus screen: At this time, the client does not indicate any symptoms associated with coronavirus-19. Ebola Screen: No symptoms or risks identified at this time. Initial Sepsis Screen: Does the patient meet any 2 criteria? No. Patient's initial sepsis screen is negative. Does the patient have a suspected source of infection? Yes: Dysuria/Frequency/Urgency/UTI. Risk Assessment: Do you want to hurt yourself or someone else? Patient reports no desire to harm self or others. Onset of symptoms was June 2022. 12:32 Method Of Arrival: Ambulatory ap3 12:32 Acuity: GABBY 3 ap3 Triage Assessment: 12:36 General: Appears in no apparent distress. Behavior is calm, cooperative, appropriate ap3 for age. General: Reports fever for intermittently for one month. Pain: Complains of pain in low back area. Neuro: Level of Consciousness is awake, alert, obeys commands, Oriented to person, place, time, situation. Cardiovascular: Patient's skin is warm and dry. Respiratory: Airway is patent Respiratory effort is even, unlabored, Respiratory pattern is regular, symmetrical. : Reports pain with urination. Musculoskeletal: Range of motion: intact in all extremities. Historical: - Allergies: 12:35 No Known Allergies; ap3 - PSHx: 12:35 back sx; gastric bypass; knee sx; ap3 - Immunization history:: Client reports receiving the 2nd dose of the Covid vaccine. - Social history:: Smoking status: Patient denies any tobacco usage or history of. Patient uses alcohol, occasionally. Screenin:[facility] ED Fall Risk Assessment (Adult) History of falling in the last 3 months, ap3 including since admission No falls in past 3 months (0 pts). Abuse screen: Denies threats or abuse. Nutritional screening: No deficits noted. Tuberculosis screening: No symptoms or risk factors identified. Assessment: 14:11 Neuro: Level of Consciousness is awake, alert, obeys commands, Oriented to person, mb9 place, time, situation, Appropriate for age. Respiratory: Airway is patent. : Urine is cloudy, Reports burning with urination. Derm: Skin is pink, warm \T\ dry. Musculoskeletal: Range of motion: intact in all extremities. 15:00 Reassessment: to bedside to draw add on labs and complete EKG, pt currently at [facility]. . 15:36 Reassessment: pt taken to MRI. mb9 Vital Signs: 12:32 BP 128 / 82; Pulse 76; Resp 17; Temp 99; Pulse Ox 99% ; Weight 117.93 kg; Height 6 ft. ap3 0 in. ; 14:18 BP 143 / 68; Pulse 80; Resp 18 S; Pulse Ox 98% ; aa5 17:16 BP 132 / 80; Pulse 78; Resp 16; Pulse Ox 99% on R/A; mb9 12:32 Body Mass Index 35.26 (117.93 kg, 182.88 cm) ap3 ED Course: 11:25 Patient arrived in ED. mr 11:30 Jeancarlos Kim MD is Attending Physician. sal 11:56 CT Stone Protocol In Process Unspecified. EDMS 12:09 Chest Single View XRAY In Process Unspecified. EDMS 12:35 Triage completed. ap3 12:37 Arm band placed on right wrist. ap3 13:02 Urinalysis w/ reflexes Sent. mb9 13:15 Initial lab(s) drawn, by me, sent to lab. First set of blood cultures drawn by me. zm 13:20 Lactate w/ 2H reflex if indic. Sent. zm 13:21 Blood Culture Adult (2) Sent. zm 13:21 Lipase Sent. zm 13:21 Comprehensive Metabolic Panel Sent. zm 13:21 CBC with Diff Sent. zm 13:34 Inserted saline lock: 22 gauge in left antecubital area, using aseptic technique. mb9 14:10 Alejandra Rick, RN is Primary Nurse. mb9 14:10 Placed in gown. Bed in low position. Call light in reach. Side rails up X 1. Client mb9 placed on continuous cardiac and pulse oximetry monitoring. NIBP monitoring applied. 14:10 No provider procedures requiring assistance completed. mb9 14:54 Bob Rodriguez is Hospitalizing Provider. sal 15:17 US Abdomen Limited In Process Unspecified. EDMS 15:40 Cholangiogram In Process Unspecified. EDMS 16:31 EKG done, by ED staff, reviewed by Jeancarlos Kmi MD. mb9 17:20 Patient admitted, IV remains in place. mb9 Administered Medications: 13:33 Drug: NS 0.9% IV 1000 ml Route: IV; Rate: 1 bolus; Site: left antecubital; mb9 14:20 Drug: Rocephin IV 1 grams Route: IV; Rate: per protocol; Site: left antecubital; mb9 15:35 Drug: Ativan IVP 2 mg Route: IVP; Site: left antecubital; mb9 15:37 Drug: Famotidine IVP 20 mg Route: IVP; Site: left antecubital; mb9 17:10 Drug: Piperacillin-Tazobactam IVPB 3.375 grams Route: IVPB; Infused Over: 60 mins; mb9 Site: left antecubital; Medication: 14:10 VIS not applicable for this client. mb9 Outcome: 14:56 Decision to Hospitalize by Provider. sal 17:20 Admitted to Med/surg accompanied by tech, via wheelchair, room 205, with chart, Report mb9 called to IBIS Srivastava 17:20 Condition: stable 17:20 Instructed on the need for admit. 17:30 Patient left the ED. mb9 Signatures: Dispatcher [employer] Jeancarlos Packer MD MD cha Rivera, Mary mr Keating, Mary, RN RN aa5 Ronna Morales RN RN ap3 Leigh Hanson Mary Beth, IBIS jasso
[2022-07-18] MEDS ORDERED: FAMOTIDINE 20 MG/2 ML VIAL IV ONE (15:33)
[2022-07-18] MEDS ORDERED: LORazepam 2 MG/ML VIAL ONE (15:33)
[2022-07-18 16:34] LABS: Protime INR 1.11
--- NOTE | 2022-07-18 16:36 | RAD REPORT ---
EXAM DESCRIPTION: US - Abdomen Exam Limited - 07/18/2022 3:15 pm CLINICAL HISTORY: ABD PAIN COMPARISON: Stone Protocol dated 07/18/2022; Cholangiogram dated 07/18/2022 TECHNIQUE: Sonographic grayscale and color flow images of the right upper quadrant were obtained. FINDINGS: The gallbladder is distended, containing layering mildly echogenic sludge and small echoge shirin shadowing stones near the fundus and neck. Region of the fundus is not well evaluated given over shadowing bowel. No pericholecystic fluid or gallbladder wall thickening. The common bile duct is dil ated measuring 1.4 centimeter in caliber. Its distal aspect is not well visualized. The evaluated portions of the liver demonstrate no focal lesions. IMPRESSION: Distended gallbladder with sludge and numerous layering stones. Dilated common bile duct measuring 1.4 centimeter. No sonographic findings to suggest acute cholecystitis.
--- NOTE | 2022-07-18 16:42 | RAD REPORT ---
EXAM DESCRIPTION: MRI - Cholangiogram - 07/18/2022 3:58 pm CLINICAL HISTORY: abd pain COMPARISON: Abdomen Exam Limited dated 07/18/2022; Stone Protocol dated 07/18/2022 TECHNIQUE: Multiplanar multisequence MRI of the abdomen, obtained without IV contrast, including t hin cut coronal heavily T2 weighted MR cholangiography images. FINDINGS: Gallbladder is distended, with layering gallstones against the dependent wall of the body of the gallbladder. Mild central intrahepatic biliary ductal dilation. The common bile duct is dilated measuring 1.2 cent imeter in caliber along its mid aspect. The distal aspect of the common bile duct is not well evaluat ed on the MRCP images, given poor signal to noise ratio, in part related to bowel motion and breathin g. Allowing for this, a 5 millimeter hypointense focus is seen in the most distal common bile duct on th e axial T2 images (series 7, image 23), concerning for a distal common duct stone. In retrospect, the re is ill-defined mild hyperdensity at that level on the CT of the same day. Right superior pole 1.4 centimeter renal parapelvic cystic lesion. No other suspicious renal parenchy mal lesions or contour abnormality. The liver, spleen, adrenal glands, and pancreas are otherwise unr emarkable. The visualized aspects of the bowel are unremarkable. Partially visualized lumbar fusion h ardware. IMPRESSION: Dilated common bile duct with suspected 5 millimeter distal calculus, best appreciated o n the axial T2 images. Mild central intrahepatic biliary ductal dilation. The gallbladder is distended with layering gallstones. No other suspicious intra-abdominal process. The findings were communicated to Jeancarlos Kim on 07/18/2022 at 16:33 hours.
[2022-07-18] MEDS ORDERED: ONDANSETRON 4 MG/2 ML VIAL IV PRN (16:54)
[2022-07-18] MEDS: PIPER TAZO 3.375 GM in NA CHLORIDE 0.9% 100 ML IV SCH (17:00)
--- NOTE | 2022-07-18 17:00 | P.HP ---
Certification for Inpatient Patient admitted to: Inpatient With expected LOS: >2 Midnights Patient will require the following post-hospital care: None Practitioner: I am a practitioner with admitting privileges, knowledge of patient current condition, hospital course, and medical plan of care. Services: Services provided to patient in accordance with Admission requirements found in Title 42 Section 412.3 of the Code of Federal Regulations Patient History Date of Service: 07/18/22 Reason for admission: Fever History of Present Illness: Patient is a 51-year-old male with a past medical history significant for chronic back pain who presents with complaint of fever that been ongoing for the past 2 months. Patient reported associated signs and symptoms of dysuria, headache, generalized body pains, chills and back pain. The patient rated back pain as 8/10 in severity and described pain as aching in quality. Patient denies any other signs or symptoms. Symptoms are aggravated or relieved by nothing. Patient decided to present to the due to worsening symptoms. Allergies No Known Allergies Allergy (Unverified 07/18/22 18:22) Home Medications: Ciprofloxacin HCl 1 tab PO Q12HR 07/18/22 Ibuprofen [Advil] 200 mg PO DAILY PRN 07/18/22 - Past Medical/Surgical History -: Chronic back pain -: Obesity -: DM 2 -: Gastric Bypass -: Back Surgery - Family History Family History: Reviewed- Non-Contributory - Social History Smoking Status: Former smoker Alcohol use: No CD- Drugs: No Caffeine use: No Place of Residence: Home Review of Systems General: Chills, Other (Generalized body pain ), Unremarkable Eyes: Unremarkable ENT: Unremarkable Respiratory: Unremarkable Cardiovascular: Unremarkable Genitourinary: Dysuria Musculoskeletal: Back Pain Integumentary: Unremarkable Neurological: Other (VIGIL), Unremarkable Lymphatics: Unremarkable Physical Examination - Physical Exam General: Alert, In no apparent distress, Oriented x3, Cooperative HEENT: Atraumatic, PERRLA, Mucous membr. moist/pink, EOMI, Sclerae nonicteric Neck: Supple, 2+ carotid pulse no bruit, No LAD, Without JVD or thyroid abnormality Respiratory: Clear to auscultation bilaterally, Normal air movement Cardiovascular: No edema, Regular rate/rhythm, Normal S1 S2 Capillary refill: <2 Seconds Gastrointestinal: Normal bowel sounds, Soft and benign, No tenderness Musculoskeletal: No clubbing, No swelling, No tenderness Integumentary: No rashes, No significant lesion Neurological: Normal speech, Normal strength at 5/5 x4 extr, Normal tone, Normal affect Lymphatics: No axilla or inguinal lymphadenopathy - Studies Laboratory Data (last 24 hrs) 07/18/22 16:09: PT 12.2, INR 1.11 07/18/22 13:15: Sodium 132 L, Potassium 4.1, BUN 19 H, Creatinine 1.00, Glucose 129 H, Total Bilirubin 2.4 H, AST 125 H, ALT 164 H, Alkaline Phosphatase 776 H, Lipase 15 07/18/22 13:15: WBC 6.00, Hgb 7.6 L, Hct 26.0 L, Plt Count 375 Assessment and Plan - Plan --Choledocholithiasis. MRCP indicates "Dilated common bile duct with suspected 5 millimeter distal calculus". Gastroenterology consulted. Will await further recommendations. --Acute pain on chronic pain. We will manage pain with current pain medication regimen. --Fever. Patient reported that fever has been ongoing for the past 2 months. UA negative. Blood cultures pending. Infectious disease consulted for further management. Will await further recommendations. --Elevated LFTs. Likely secondary to choledocholithiasis. We will continue to monitor liver functions. Continue supportive care. --Morbid obesity. Likely secondary to excess calories intake. Patient counseled on weight reduction, diet and excise therapy. --Microcytic anemia. Iron studies pending. H&H stable. We will continue to monitor hemoglobin and transfuse if less than 7.0. --VIGIL. Tylenol prn --DVT prophylaxis with SCDs. Discharge Plan: Home Plan to discharge in: Greater than 2 days - Advance Directives Does patient have a Living Will: No Does patient have a Durable POA for Healthcare: No - Code Status/Comfort Care Code Status Assessed: Yes Physician Review: Patient Assessed, Agree with Above Assessment and Plan Critical Care: No
[2022-07-18] MEDS ORDERED: NA CHLORIDE 0.9% 100 ML ONE (17:11)
[2022-07-18] MEDS ORDERED: PIPERACIL/TAZO 3.375 GM VIAL IV ONE (17:11)
[2022-07-18 18:18] LABS: Albumin 2.7 g/dL (3.4-5.0); Bilirubin Total 2.1 mg/dL (0.2-1.0); Ferritin 12.2 ng/mL (26-388); Magnesium 1.9 mg/dL (1.6-2.4); Phosphorus 2.1 mg/dL (2.5-4.9); Potassium 4.1 mEq/L (3.5-5.1); Thyroid Stimulating Hormone 0.434 uIU/mL (0.358-3.740)
[2022-07-18 18:28] LABS: Absolute Lymphocytes (CBC) 1.3 K/uL (0.7-4.9); Hematocrit 25.1 % (39.6-49.0); MCV 72.6 fL (80-100); MPV 7.5 fL (7.6-11.3); RBC Red Blood Cell Count 3.45 M/uL (4.33-5.43)
[2022-07-18] MEDS: HYDROCODONE/APAP 10/325 TAB PO PRN (18:35)
[2022-07-18] MEDS: ENOXAPARIN 40 MG/0.4 ML SQ SCH (18:36)
[2022-07-18] MEDS: LACTULOSE 20 GM/30 ML UCUP PO SCH ×2 (18:36→21:00)
[2022-07-18 20:52] LABS: Anisocytosis 1+; Blood Morphology Comment NOTED (NOT SEEN); Platelet Estimate ADEQ; Poikilocytosis 1+
[2022-07-19] MEDS: PIPER TAZO 3.375 GM in NA CHLORIDE 0.9% 100 ML IV SCH ×3 (01:33→17:19)
[2022-07-19 03:52] LABS: Protime INR 1.07
[2022-07-19 04:08] LABS: Hematocrit 24.4 % (39.6-49.0); MCV 73.1 fL (80-100); MPV 7.7 fL (7.6-11.3); RBC Red Blood Cell Count 3.33 M/uL (4.33-5.43)
[2022-07-19 04:10] LABS: Albumin 2.6 g/dL (3.4-5.0); Bilirubin Total 1.3 mg/dL (0.2-1.0); Magnesium 2.1 mg/dL (1.6-2.4); Potassium 4.3 mEq/L (3.5-5.1); Protein, Total 6.7 g/dL (6.4-8.2)
[2022-07-19] MEDS: HYDROCODONE/APAP 10/325 TAB PO PRN ×2 (06:03→13:14)
[2022-07-19 06:11] LABS: Blood Morphology Comment NOTED (NOT SEEN); Hypochromasia 2+; Platelet Estimate INCR
--- NOTE | 2022-07-19 06:56 | P.PN ---
Date of Service: 07/19/22 Subjective: pain feels about the same as yesterday no new / worsening problems no nausea / vomiting afebrile ROS: 10 point ROS as noted above, otherwise negative Physical Exam: GEN: Alert, oriented, uncomfortable appearing HEENT: Normal conjunctiva, sclera anicteric CV: Regular rate and rhythm, no edema Pulm: Nonlabored respirations on room air ABD: Soft, moderate RUQ tenderness, nondistended MSK: No joint tenderness Neuro: Normal speech, normal affect vitals reviewed Problem List: Choledocholithiasis Fever Elevated LFTs Microcytic anemia, severe iron deficiency; chronic h/o gastric bypass Obesity Choledocholithiasis Fever MRCP indicates "Dilated common bile duct with suspected 5 millimeter distal calculus" GI consulted NPO for tentative ERCP 07/19 pain medication as needed General surgery consulted, plan for cholecystectomy after ERCP Fever Patient reported that fever has been ongoing for the past 1-2 months UA negative Blood cultures pending unusual to be due to choledocho for this long, possibly response to passing smaller stones ID consulted Continue Zosyn Microcytic anemia severe iron deficiency anemia report 01/2021 noted to have hgb in mid 7s. Nothing done about it thinks anemia wasn't until after bypass surgery no obvious bleed, denies dark stool, no visible blood in urine/stool hgb -> down to 7.0 (07/19) 1 uPRBC ordered 07/19 will need iron Elevated LFTs secondary to choledocholithiasis We will continue to monitor liver function ERCP as noted above Morbid obesity h/o gastric bypass Likely secondary to excess calories intake. Patient counseled on weight reduction, diet and excise therapy. VTE: Lovenox held for possible surgery and anemia Code: Full Dispo: Home 2-3 days
[2022-07-19] MEDS ORDERED: NA CHLORIDE 0.9% 250 ML IV SCH (07:00)
[2022-07-19] MEDS: ENOXAPARIN 40 MG/0.4 ML SQ SCH (09:00)
[2022-07-19] MEDS: LACTULOSE 20 GM/30 ML UCUP PO SCH ×2 (09:00→20:48)
[2022-07-19] MEDS: NA CHLORIDE 0.9% 1,000 ML IV SCH ×2 (09:37→22:26)
--- NOTE | 2022-07-19 11:28 | P.CNS ---
Date of Consult: 07/19/22 Chief Complaint: Fever History of Present Illness: Patient is a 51 yo male with a past medical history of chronic back pain, gastric bypass and obesity who presented to the ED with complaints of fever x 2 months, dysuria, myalgia, chills and back pain. Patient reports dysuria and dark colored urine for which he was prescribed Ciprofloxacin for "UTI" last week. Imaging performed in ED: CT abdomen/pelvis revealing Cholelithiasis. Abdominal ultrasound showing "distended gallbladder with sludge and numerous layering stones." And MRCP showing ""Dilated common bile duct with suspected 5 millimeter distal calculus, best appreciated on the axial T2 images. Mild central intrahepatic biliary ductal dilation. The gallbladder is distended with layering gallstones. No other suspicious intra-abdominal process." AST 125, ALT 164, Alkphos 776, total bili 2.4, hgb 7.6, WBC 6. Patient was placed on Zosyn and general surgery, GI and ID were consulted. Allergies No Known Allergies Allergy (Unverified 07/18/22 18:22) Home medications list reviewed: Yes Home Medications: Ciprofloxacin HCl 1 tab PO Q12HR 07/18/22 Ibuprofen [Advil] 200 mg PO DAILY PRN 07/18/22 - Past Medical/Surgical History Diabetic: No -: Chronic back pain -: Obesity -: DM 2 -: Gastric Bypass -: Back Surgery -: R kneecap -: gastric bypass - Social History Smoking Status: Never smoker Alcohol use: No CD- Drugs: No Caffeine use: No Place of Residence: Home Review of Systems 10-point ROS is otherwise unremarkable General: Fever, Weakness Physical Examination Temp Pulse Resp BP Pulse Ox 97.2 F 55 16 141/66 H 98 07/19/22 08:00 07/19/22 08:00 07/19/22 08:00 07/19/22 08:00 07/19/22 08:00 General: Alert, In no apparent distress, Oriented x3 HEENT: Atraumatic, Normocephalic Neck: Supple, JVD not distended Respiratory: Clear to auscultation bilaterally, Normal air movement Cardiovascular: No edema, Normal pulses Gastrointestinal: Normal bowel sounds, Non-distended, Tenderness (mild) Musculoskeletal: No clubbing, No swelling Integumentary: No rashes, No breakdown Neurological: Normal speech, Normal tone, Normal affect Laboratory Data - Reviewed Microbiology Data - Reviewed Imagings Data: - CT abdomen/pelvis 07/18: "No urinary tract stones or obstructive uropathy. Cholelithiasis." - MRCP 07/18: "Dilated common bile duct with suspected 5 millimeter distal calculus, best appreciated on the axial T2 images. Mild central intrahepatic biliary ductal dilation. The gallbladder is distended with layering gallstones. No other suspicious intra-abdominal process." Conclusions/Impression: Problem List Gastric bypass Chronic back pain Anemia Choledocholithiasis Cholecystitis Choledocholithiasis, Cholecystitis Patient currently denies any nausea, vomiting, diarrhea. Reports mild abdominal tenderness epigastric/RUQ and generalized weakness. Afebrile No leukocytosis Blood cultures 07/18: No growth 24 hours LFTs elevated GI and general surgery on case On Zosyn (07/18) Recommendations - Continue Zosyn for now (started 07/18) - GI and general surgery on case. Pending ERCP and cholecystectomy. - Continue supportive care. - Monitor WBC and fever trends. LFTs ID will follow the patient as needed. Case discussed with Maren Bowers
[2022-07-19] MEDS ORDERED: NA CHLORIDE 0.9% 250 ML ONE (13:06)
--- NOTE | 2022-07-19 15:32 | CON ---
Date of Consultation: 07/19/2022 Reason For Service: Acute cholecystitis, symptomatic cholelithiasis, choledocholithiasis, and hyperb ilirubinemia. History Of Present Illness: This is a case of a male, who comes to us complaining of epigastric righ t upper quadrant pain, diagnosed with the acute cholecystitis, symptomatic cholelithiasis. During e process of that, he was also diagnosed with a choledocholithiasis after found LFT to be elevated. Patient was consulted with the animal geneticist for an ERCP and for surgical intervention and rigoberto cystectomy by me. Patient denies any previous episode. Denies any dysuria, hematuria, hematochezia, melena. Denies any recent traveling out of the country. Denies any family member sick at home. Allergies: NO KNOWN GASTRIC ALLERGIES. Past Surgical History: Include back surgery, gastric bypass, and knee surgery. The gastric bypass i s still unsure which one it is. It is important for us because may negate the access to the ERCP. Social History: He does not smoke. He does not drink alcohol, does social. Family History: Noncontributory. Review of Systems: Better now though he comes with nausea, vomiting, and abdominal pain. Physical Examination: General: Patient is awake and alert. HEENT: Pupils are equal and reactive. Anicteric. Neck: Supple. Chest: Clear. Heart: S1, S2. Abdomen: Epigastric and right upper quadrant mild tenderness. Extremities: Good capillary refill. Blood Work: He comes with a WBC count of 6 with hemoglobin of 7.6 and platelets of 375. INR is 1.11 . LFTs: He comes with a total bilirubin of 2.4, now 1.3; alkaline phosphate of 744; AST 125; ALT 16 4. Triglyceride 112, lipase 15. CAT scan of the abdomen and pelvis interpreted by Dr. Hinds as rigoberto lithiasis. Abdominal ultrasound interpreted by Dr. Bahena, distended gallbladder with sludge and num erous layering stones. Dilated common bile duct 1.4 cm. MRCP done yesterday shows dilated common bi le duct with suspected stone. Assessment: Acute cholecystitis, symptomatic cholelithiasis, choledocholithiasis. The patient under stands he has a followup pending for Dr. Florez for ERCP and then after that, he will follow with opt ions of laparoscopic possible open cholecystectomy that was explained to him with benefits, alternati ve, and risks including, but not limited to infection, bleeding, damage to adjacent structures, anest hesia complication, choledocholithiasis, bile leak, pancreatitis, ND, and even . He also unders tands this may not relieve symptoms. He might need more than one surgical intervention. Once again pending on the gastric bypass he had before. MARS/OSITO Voice ID: [id number] Report ID: [id number]
[2022-07-19] MEDS ORDERED: MORPHINE 2 MG/ML SYR IV PRN (20:33)
[2022-07-19 21:03] VITALS: O2SAT 99
[2022-07-19] MEDS ORDERED: MELATONIN 5 MG TABLET PO PRN (22:10)
[2022-07-19] MEDS: HYDROMORPHONE HCL 0.5 MG/0.5 ML INJ IV PRN (22:23)
[2022-07-20] MEDS: PIPER TAZO 3.375 GM in NA CHLORIDE 0.9% 100 ML IV SCH ×3 (00:22→16:27)
[2022-07-20] MEDS: NA CHLORIDE 0.9% 1,000 ML IV SCH ×3 (03:00→20:35)
[2022-07-20] MEDS: HYDROMORPHONE HCL 0.5 MG/0.5 ML INJ IV PRN ×5 (03:20→20:36)
[2022-07-20 04:20] LABS: Potassium 4.1 mEq/L (3.5-5.1)
[2022-07-20 04:22] LABS: Albumin 2.6 g/dL (3.4-5.0)
[2022-07-20 04:26] LABS: Bilirubin Total 1.3 mg/dL (0.2-1.0); Protein, Total 6.7 g/dL (6.4-8.2)
[2022-07-20 04:34] LABS: Hematocrit 26.7 % (39.6-49.0); MCV 73.8 fL (80-100); MPV 7.9 fL (7.6-11.3); RBC Red Blood Cell Count 3.61 M/uL (4.33-5.43)
--- NOTE | 2022-07-20 07:07 | P.PN ---
Date of Service: 07/20/22 Subjective: Pain in abdomen remains the same, not worse, not better patient reports gastric bypass was bayron-en-y. pending transfer per GI to tertiary care center s/p 1u PRBC yesterday ROS: 10 point ROS as noted above, otherwise negative Physical Exam: GEN: Alert, oriented, somewhat uncomfortable appearing HEENT: Normal conjunctiva, sclera anicteric CV: Regular rate and rhythm, no edema Pulm: Nonlabored respirations on room air ABD: Soft, moderate RUQ tenderness, nondistended MSK: No joint tenderness Neuro: Normal speech, normal affect vitals reviewed Problem List: Choledocholithiasis Fever Elevated LFTs Microcytic anemia, severe iron deficiency; chronic h/o gastric bypass, bayron-en-y Obesity Choledocholithiasis Fever MRCP indicates "Dilated common bile duct with suspected 5 millimeter distal calculus" GI consulted Dr. Gil recommends ERCP General surgery consulted, plan for cholecystectomy after ERCP Unable to perform ERCP here due to complexity / bayron-en-y. initiated transfer 07/20 am pain medication as needed Fever Patient reported that fever has been ongoing for the past 1-2 months UA negative Blood cultures pending unusual to be due to choledocho for this long, possibly response to passing smaller stones ID consulted Continue Zosyn Microcytic anemia severe iron deficiency anemia report 01/2021 noted to have hgb in mid 7s. Nothing done about it thinks anemia wasn't until after bypass surgery no obvious bleed, denies dark stool, no visible blood in urine/stool hgb -> down to 7.0 (07/19) 1 uPRBC given (07/19); hgb to 8 IV iron ordered Elevated LFTs secondary to choledocholithiasis We will continue to monitor liver function Morbid obesity h/o gastric bypass Likely secondary to excess calories intake. Patient counseled on weight reduction, diet and excise therapy. VTE: Lovenox held for possible surgery and anemia Code: Full Dispo: Patient needs ERCP and Cholecystectomy Transfer initiated [address] Florez
[2022-07-20 07:21] LABS: Platelet Estimate ADEQ
[2022-07-20 07:22] LABS: Anisocytosis 2+; Blood Morphology Comment NOTED (NOT SEEN)
[2022-07-20] MEDS: ENOXAPARIN 40 MG/0.4 ML SQ SCH (08:10)
[2022-07-20] MEDS: LACTULOSE 20 GM/30 ML UCUP PO SCH ×2 (08:10→20:36)
[2022-07-20 08:55] VITALS: BMI 35.2
[2022-07-20] MEDS ORDERED: SOD FERRIC GLUC COMPLX/SUCROSE 125 MG in NA CHLORIDE 0.9% 100 ML IV SCH (10:30)
--- NOTE | 2022-07-20 11:56 | PN ---
Date of Progress Note: 07/20/2022 Diagnosis: Symptomatic cholelithiasis and choledocholithiasis. Subjective: As we discussed yesterday in my consult, we were trying to get more information about hi s previous gastric bypass. After discussing with the patient today, once again, he remembered that t he name of Mariel-en-Y gastric bypass and that is what he believes he had done. It was so many years a go that he does not have the details on that. The physical and the clinical symptoms are still the s ciaran, mild right upper quadrant tenderness. The patient has an ERCP as scheduled but I sent a word to the GI doctor and to the staff and also I discussed with the primary doctor that if the patient has a Mariel-en-Y gastric bypass, there is a good chance that the access of ERCP is denied. Most of the ti me, many years ago, we used to transect the stomach, making the endoscopy and the cannulation of the common bile duct impossible to pass. Once again, this is coming from the patient at this moment is w hat he recalled, but once we mentioned Mariel-en-Y gastric bypass, he recognized the surgery. If that is the case, then there are some other options that can be done, but not in this institution. So we will recommend this patient to be transferred to an institution especially somebody who works with [facility] service including Mariel-en-Y gastric bypass. Once the common bile duct stone is removed, then the cholecystectomy should be done. MARS/OSITO Voice ID: [id number] Report ID: [id number]
--- NOTE | 2022-07-20 12:34 | P.PN ---
Date of Service: 07/20/22 Chief Complaint: Fever Subjective: No new changes. Pending transfer to tertiary facility. Reports abdominal RUQ pain 10/20. Denies any nausea, vomiting or diarrhea. at bedside. Physical Examination Temp Pulse Resp BP Pulse Ox 98.3 F 59 18 139/72 100 07/20/22 08:00 07/20/22 08:00 07/20/22 08:32 07/20/22 08:00 07/20/22 08:32 General: Alert, In no apparent distress, Oriented x3 HEENT: Atraumatic, Normocephalic Neck: Supple, JVD not distended Respiratory: Clear to auscultation bilaterally, Normal air movement Cardiovascular: No edema, Normal pulses Gastrointestinal: Normal bowel sounds, Non-distended, RUQ/epigastric tenderness Musculoskeletal: No clubbing, No swelling Integumentary: No rashes, No breakdown Neurological: Normal speech, Normal tone, Normal affect Laboratory Data - Reviewed Microbiology Data - Reviewed Imagings Data: - CT abdomen/pelvis 07/18: "No urinary tract stones or obstructive uropathy. Cholelithiasis." - MRCP 07/18: "Dilated common bile duct with suspected 5 millimeter distal calculus, best appreciated on the axial T2 images. Mild central intrahepatic biliary ductal dilation. The gallbladder is distended with layering gallstones. No other suspicious intra-abdominal process." Conclusions/Impression: Problem List Gastric bypass Chronic back pain Anemia Choledocholithiasis Cholecystitis Choledocholithiasis, Cholecystitis Afebrile No leukocytosis Blood cultures 07/18: No growth 24 hours On Zosyn (07/18) GI and general surgery on case. Abdominal pain 8/10. on PRN pain medication. No nausea, vomiting or diarrhea reported. Recommendations - Continue current plan of care - Pt doing well on Zosyn, continue for now. - GI and General Surgery on case, recommending transfer for common bile duct stone removal. - Supportive care ID will follow the patient as needed. Case discussed with Maren Bowers
--- NOTE | 2022-07-20 16:02 | EKG ---
Test Date: 2022-07-18 Test Time: 16:27:27 Nurse Clinical: MB MEASUREMENT RESULTS: Intervals: Rate: 70 IL: 178 QRSD: 98 QT: 400 QTc: 432 [place]: P: 63 IL: 178 QRS: 35 T: 67 INTERPRETIVE STATEMENTS: Normal sinus rhythm Normal ECG No previous ECG available for comparison Electronically Signed On 07-20-22 15:57:53 CDT by Stanley Erickson
[2022-07-20 17:06] VITALS: BP 154/71; TEMP 98
--- NOTE | 2022-07-20 21:00 | P.DS ---
Admission Date: 07/18/22 Discharge Date: 07/20/22 Disposition: TRANSFER TO [facility] Discharge Condition: FAIR Reason for Admission: Fever Consultations: GI, Surgery, ID Procedures: CT abdomen pelvis 07/18/2022 FINDINGS: The lower lung garcia are clear. Postsurgical changes at the gastroesophageal junction. Small hiatal hernia. Imaged portions of the liver and spleen show no suspicious findings on non-co ntrast imaging.Cholelithiasis. The pancreas and adrenal glands are normal. No pathologic lymphadenopathy in the abdomen or pelvis. Moderate stool is present throughout the colon. No urinary tract stones or obstructive uropathy. No bowel obstruction, free air, free fluid or abscess. Normal appendix noted. Postsurgical lumbar spine. IMPRESSION: No urinary tract stones or obstructive uropathy. Cholelithiasis. Chest x-ray 07/18/2022 COMPARISON: No comparisons FINDINGS: Portable technique limits examination quality. The lungs are grossly clear. The heart is normal in size. No displaced fractures. IMPRESSION: No acute intrathoracic process suspected. Abdominal ultrasound 07/18/2022 FINDINGS: The gallbladder is distended, containing layering mildly echogenic sludge and small echogenic shadowing stones near the fundus and neck. Region of the fundus is not well evaluated given over shadowing bowel. No pericholecystic fluid or gallbladder wall thickening. The common bile duct is dilated measuring 1.4 centimeter in caliber. Its distal aspect is not well visualized. The evaluated portions of the liver demonstrate no focal lesions. IMPRESSION: Distended gallbladder with sludge and numerous layering stones. Dilated common bile duct measuring 1.4 centimeter. No sonographic findings to suggest acute cholecystitis. MRCP 07/18/2022 FINDINGS: Gallbladder is distended, with layering gallstones against the dependent wall of the body of the gallbladder. Mild central intrahepatic biliary ductal dilation. The common bile duct is dilated measuring 1.2 centimeter in caliber along its mid aspect. The distal aspect of the common bile duct is not well evaluated on the MRCP images, given poor signal to noise ratio, in part related to bowel motion and breathing. Allowing for this, a 5 millimeter hypointense focus is seen in the most distal common bile duct on the axial T2 images (series 7, image 23), concerning for a distal common duct stone. In retrospect, there is illdefined mild hyperdensity at that level on the CT of the same day. Right superior pole 1.4 centimeter renal parapelvic cystic lesion. No other suspicious renal parenchymal lesions or contour abnormality. The liver, spleen, adrenal glands, and pancreas are otherwise unremarkable. The visualized aspects of the bowel are unremarkable. Partially visualized lumbar fusion hardware. IMPRESSION: Dilated common bile duct with suspected 5 millimeter distal calculus, best appreciated on the axial T2 images. Mild central intrahepatic biliary ductal dilation. The gallbladder is distended with layering gallstones. No other suspicious intra-abdominal process Brief History of Present Illness: Patient is a 51-year-old male with a past medical history significant for chronic back pain who presents with complaint of fever that been ongoing for the past 2 months. Patient reported associated signs and symptoms of dysuria, headache, generalized body pains, chills and back pain. The patient rated back pain as 8/10 in severity and described pain as aching in quality. Patient denies any other signs or symptoms. Symptoms are aggravated or relieved by nothing. Patient decided to present to the due to worsening symptoms. Hospital Course: Patient was admitted to the hospital with abdominal pain, found to have choledocholithiasis. Given his history of Mariel-en-Y gastric bypass GI/general surgery recommended transfer to higher level of care for ERCP. Transfer was initiated earlier today and patient has been accepted for transfer. Patient may return here after ERCP for cholecystectomy. Continue with [facility] at [facility]. Problem List: Choledocholithiasis Fever Elevated LFTs Microcytic anemia, severe iron deficiency; chronic h/o gastric bypass, mariel-en-y Obesity Choledocholithiasis Fever MRCP indicates "Dilated common bile duct with suspected 5 millimeter distal calculus" GI consulted Dr. Gil recommends ERCP General surgery consulted, plan for cholecystectomy after ERCP Unable to perform ERCP here due to complexity / mariel-en-y. initiated transfer 5/10 am pain medication as needed Fever Patient reported that fever has been ongoing for the past 1-2 months UA negative Blood cultures pending unusual to be due to choledocho for this long, possibly response to passing smaller stones ID consulted Continue Zosyn Microcytic anemia severe iron deficiency anemia report 01/2021 noted to have hgb in mid 7s. Nothing done about it thinks anemia wasn't until after bypass surgery no obvious bleed, denies dark stool, no visible blood in urine/stool hgb -> down to 7.0 (07/19) 1 uPRBC given (07/19); hgb to 8 IV iron ordered Elevated LFTs secondary to choledocholithiasis We will continue to monitor liver function Morbid obesity h/o gastric bypass Likely secondary to excess calories intake. Patient counseled on weight reduction, diet and excise therapy. VTE: Lovenox held for possible surgery and anemia Code: Full Dispo: Patient needs ERCP and Cholecystectomy Transfer initiated 07/[address] Florez Vital Signs/Physical Exam: Temp Pulse Resp BP Pulse Ox 98.0 F 57 16 154/71 H 99 07/20/22 16:00 07/20/22 16:00 07/20/22 20:36 07/20/22 16:00 07/20/22 20:36 Laboratory Data at Discharge: WBC 4.90 thou/uL (4.3-10.9) 07/20/22 02:44 Hgb 8.0 g/dL (13.6-17.9) L 07/20/22 02:44 Hct 26.7 % (39.6-49.0) L 07/20/22 02:44 Plt Count 316 thou/uL (152-406) 07/20/22 02:44 PT 11.8 SECONDS (9.5-12.5) 07/19/22 03:23 INR 1.07 07/19/22 03:23 APTT 33.5 SECONDS (24.3-36.9) 07/19/22 09:57 Sodium 135 mEq/L (136-145) L 07/20/22 02:44 Potassium 4.1 mEq/L (3.5-5.1) 07/20/22 02:44 BUN 11 mg/dL (7-18) 07/20/22 02:44 Creatinine 0.79 mg/dL (0.70-1.30) 07/20/22 02:44 Glucose 98 mg/dL (74-106) 07/20/22 02:44 Phosphorus 2.1 mg/dL (2.5-4.9) L 07/18/22 17:40 Magnesium 2.0 mg/dL (1.6-2.4) 07/20/22 02:44 Total Bilirubin 1.3 mg/dL (0.2-1.0) H 07/20/22 02:44 AST 117 U/L (15-37) H 07/20/22 02:44 ALT 169 U/L (16-61) H 07/20/22 02:44 Alkaline Phosphatase 785 U/L (45-117) H 07/20/22 02:44 Triglycerides 112 mg/dL (<150) 07/18/22 17:40 Cholesterol 154 mg/dL (<200) 07/18/22 17:40 HDL Cholesterol 29 mg/dL (40-60) L 07/18/22 17:40 Cholesterol/HDL Ratio 5.31 07/18/22 17:40 Lipase 20 U/L (13-75) 07/20/22 02:44 Home Medications: Ciprofloxacin HCl 1 tab PO Q12HR 07/18/22 Ibuprofen [Advil] 200 mg PO DAILY PRN 07/18/22 Followup: NONE,NONE [Primary Care Provider] -
== END 2022-07-20 21:57 | disposition short-term general hospital (02) | DRG 446 ==
LOC: ER 11:19 → ERHOLD 16:38 → 2ND 17:25
PROVIDERS: ADMIT Internal Medicine; ATTEND Hospitalist
PROC: 30233N1 Transfusion of Nonautologous Red Blood Cells into Peripheral Vein, Percutaneous Approach (ICD-10-PCS; principal; 2022-07-19)
DX: K80.50 Calculus of bile duct without cholangitis or cholecystitis without obstruction (principal); G89.29 Other chronic pain; M54.9 Dorsalgia, unspecified; D50.9 Iron deficiency anemia, unspecified; D53.9 Nutritional anemia, unspecified; K44.9 Diaphragmatic hernia without obstruction or gangrene; E66.01 Morbid (severe) obesity due to excess calories; R79.89 Other specified abnormal findings of blood chemistry; Z68.35 Body mass index [BMI] 35.0-35.9, adult; Z98.84 Bariatric surgery status; Z79.899 Other long term (current) drug therapy; Z87.891 Personal history of nicotine dependence
CPT/HCPCS: 36415; 36430; 71045; 74176; 74181; 76377; 76705; 80053; 80061; 81001; 82140; 82728; 83036; 83540; 83605; 83690; 83735; 84100; 84439; 84443; 84466; 85014; 85018; 85025; 85610; 85730; 86850; 86900; 86901; 86920; 87040; 93005; 96374; 96375; 99285; G0480; J0696; J1170; J1650; J2270; J2543; J2916; J7030; J7050; P9016